=== PATIENT | male | born 1955 | race Caucasian/White ===

== ENCOUNTER 2017-11-06 21:59 | Inpatient (IN) | payer OTHER ==
[~2017-11-06] VITALS: Ht 170.2 cm; Wt 117.5 kg
[~2017-11-06 21:59] MED LIST: ASPI325T PO; ATEN-104 PO; DILT120C9 PO; OMEP20CA5 PO; PARO40TA PO; ZOCO10TA PO
[2017-11-06 22:01] VITALS: BP 130/100; PULSE 180; RESP 30; O2SAT 90
[2017-11-06] MEDS ORDERED: DILTIAZEM HCL 25 MG/5 ML VIAL IV PUSH PRN (22:30)
[2017-11-06] MEDS: DILTIAZEM INJ 125 MG in SODIUM CHLORIDE 0.9% INJ 100 ML IV PRN (22:30)
[2017-11-06] MEDS ORDERED: ASPIRIN 81 MG CHEW TAB PO ONE (22:30)
[2017-11-06] MEDS ORDERED: SODIUM CHLORIDE 0.9% FLUSH 10 ML FLUSH IVF PRN (22:30)
--- NOTE | 2017-11-06 22:41 | PD ---
HPI Chief Complaint: Respiratory Symptoms Time Seen by Provider: 22:08 Travel History International Travel<30 days: No Contact w/Intl Traveler<30days: No Traveled to known affect area: No History of Present Illness HPI The patient is a 62-year-old male that at approximately 9 PM tonight felt irregular heartbeat consistent with his previous history of paroxysmal atrial fibrillation. He felt chest tightness, was diaphoretic and short of breath. He denies any syncopal or near syncopal spells. He states he is on atenolol and Cartia. He is a [facility] patient of Dr. Joe Berger. 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 He denies any history of congestive heart failure. [facility] Past Medical History Arthritis: Yes (hands, low back) Asthma: No Atrial Fibrillation: Yes Anxiety: Yes Depression: Yes Heart Rhythm Problems: Yes (afib 14 years ago (1998)) Cancer: No Cardiovascular Problems: Yes High Cholesterol: Yes Chest Pain: No Congestive Heart Failure: No COPD: No Diminished Hearing: No Endocrine: No GERD: Yes Genitourinary: No Hiatal Hernia: No Hypertension: Yes Immune Disorder: No Musculoskeletal: Yes Neurologic: No Psychiatric: Yes Reproductive: No Respiratory: Yes Sleep Apnea: Yes (uses a cpap machine) Ulcer: No Social History Alcohol Use: Yes (2 DRINKS PER DAY) Tobacco Use: Yes (1 PPD) Substance Use: No Allergies-Medications (Allergen,Severity, Reaction): Coded Allergies: No Known Allergies (Verified , 10/15/13) Reported Meds & Prescriptions Reported Meds & Active Scripts Active Reported Coq10 (Coenzyme Q10 (Ubidecarenone)) 30 Mg Cap 30 Mg PO DAILY Metformin (Metformin HCl) 500 Mg Tab 500 Mg PO DAILY With a meal Lisinopril 10 Mg Tab 10 Mg PO DAILY Simvastatin 10 Mg Tab 10 Mg PO HS Paroxetine (Paroxetine HCl) 40 Mg Tab 40 Mg PO DAILY Omeprazole 20 Mg Tab 20 Mg PO DAILY Diltiazem (Diltiazem HCl) 120 Mg Tab 120 Mg PO QID Atenolol 100 Mg Tab 100 Mg PO DAILY Aspirin 325 Mg Tab 325 Mg PO DAILY Review of Systems Except as stated in HPI: all other systems reviewed are Neg Physical Exam Narrative GENERAL: The patient is obese, alert, oriented 3 in moderate to severe respiratory distress. His vital signs show pulse rate of 180, respirations of 30, blood pressure 130/100 with oximetry 90% when he came in. SKIN: Focused skin assessment warm/dry. HEAD: Atraumatic. Normocephalic. EYES: Pupils equal and round. No scleral icterus. No injection or drainage. ENT: No nasal bleeding or discharge. Mucous membranes pink and moist. NECK: Trachea midline. There is slight JVD. CARDIOVASCULAR: Atrial fibrillation with rapid ventricular response of 80. No murmur appreciated. RESPIRATORY: There is accessory muscle use. Bilateral wheezes and Rales are heard in all lung pang. Breath sounds equal bilaterally. GASTROINTESTINAL: Abdomen soft, non-tender, nondistended. Hepatic and splenic margins not palpable. MUSCULOSKELETAL: No obvious deformities. No clubbing. No cyanosis. No edema. NEUROLOGICAL: Awake and alert. No obvious cranial nerve deficits. Motor grossly within normal limits. Normal speech. PSYCHIATRIC: The patient is extremely anxious; insight and judgment normal. 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 JENNA.Q8H (11/06/17 22:08) Cardiac Rhythm JENNA.Q8H (11/06/17 22:08) Notify Dr: Other (11/06/17 22:08) Diltiazem Inj (Cardizem Inj) (11/06/17 22:15) Diltiazem Inj (Cardizem Inj) (11/06/17 22:30) Electrocardiogram (11/06/17 22:29) B-Type Natriuretic Peptide (11/06/17 22:29) Complete Blood Count With Diff (11/06/17 22:29) Comprehensive Metabolic Panel (11/06/17 22:29) Magnesium (Mg) (11/06/17 22:29) Prothrombin Time / Inr (Pt) (11/06/17 22:29) Act Partial Throm Time (Ptt) (11/06/17 22:29) Troponin I (11/06/17 22:29) Chest, Single Ap (11/06/17 22:29) Ecg Monitoring (11/06/17 22:29) Bilateral Bp Monitoring (11/06/17 22:29) Iv Access Insert/Monitor (11/06/17 22:29) Oximetry (11/06/17 22:29) Oxygen Administration (11/06/17 22:29) Aspirin Chew (Aspirin Chew) (11/06/17 22:30) Sodium Chloride 0.9% Flush (Ns Flush) (11/06/17 22:30) Diltiazem Inj (Cardizem Inj) (11/06/17 22:45) Furosemide Inj (Lasix Inj) (11/06/17 23:15) Admit Order (Ed Use Only) (11/07/17 00:52) Labs Laboratory Tests Test 11/06/17 00:01 11/06/17 22:49 Blood Urea Nitrogen 20 MG/DL Creatinine 0.79 MG/DL Random Glucose 187 MG/DL Total Protein 7.0 GM/DL Albumin 3.1 GM/DL Calcium Level 8.4 MG/DL Magnesium Level 1.8 MG/DL Alkaline Phosphatase 52 U/L Aspartate Amino Transf (AST/SGOT) 49 U/L Alanine Aminotransferase (ALT/SGPT) 53 U/L Total Bilirubin 0.5 MG/DL Sodium Level 142 MEQ/L Potassium Level 3.7 MEQ/L Chloride Level 110 MEQ/L Carbon Dioxide Level 23.5 MEQ/L Anion Gap 9 MEQ/L Estimat Glomerular Filtration Rate 99 ML/MIN Troponin I 0.07 NG/ML White Blood Count 13.6 TH/MM3 Red Blood Count 5.22 MIL/MM3 Hemoglobin 15.4 GM/DL Hematocrit 47.3 % Mean Corpuscular Volume 90.7 FL Mean Corpuscular Hemoglobin 29.5 PG Mean Corpuscular Hemoglobin Concent 32.5 % Red Cell Distribution Width 12.8 % Platelet Count 213 TH/MM3 Mean Platelet Volume 10.0 FL Neutrophils (%) (Auto) 48.2 % Lymphocytes (%) (Auto) 41.2 % Monocytes (%) (Auto) 7.4 % Eosinophils (%) (Auto) 1.1 % Basophils (%) (Auto) 2.1 % Neutrophils # (Auto) 6.6 TH/MM3 Lymphocytes # (Auto) 5.6 TH/MM3 Monocytes # (Auto) 1.0 TH/MM3 Eosinophils # (Auto) 0.1 TH/MM3 Basophils # (Auto) 0.3 TH/MM3 CBC Comment AUTO DIFF Differential Comment AUTO DIFF CONFIRMED Prothrombin Time 10.6 SEC Prothromb Time International Ratio 1.0 RATIO Activated Partial Thromboplast Time 21.2 SEC MDM Medical Decision Making Medical Screen Exam Complete: Yes Emergency Medical Condition: Yes Medical Record Reviewed: Yes Interpretation(s) EKG initially shows atrial fibrillation with RVR with a rate of about 170. Later EKG after 50 of Cardizem and on a Cardizem drip showed a rate of 88 with still in atrial fibrillation. The troponin I is 0.07. The CBC shows a white count of 13,600. The complete metabolic profile shows a BUN of 20, glucose 187 , calcium 8.4, AST of 49 with albumin 3.1. The coagulation profile shows a PTT of 21.2. Differential Diagnosis Paroxysmal atrial fibrillation, myocardial infarction, electrolyte disorder, congestive heart failure, hypo-/hyperglycemia, renal insufficiency Narrative Course The patient has a minimal elevation of the troponin I which may be simply congestive heart failure. The x-ray did show congestive heart failure. The patient will be put on Lovenox and a Cardizem drip and admitted to [facility] I discussed the patient with Dr. Le and Dr. taylor. It is now 013 6 in the morning and the patient feels much better and his shortness of breath has resolved. He was also given Lasix here IV. The nurses could not get a peripheral IV in this patient and I had to put an external jugular line in. Critical Care Narrative The patient was in severe distress when he came in, diaphoretic. He required constant monitoring as we gave him boluses of Cardizem. The total Cardizem bolus was 50 mg. Critical care time was 45 minutes.Aggregate critical care time was [-] minutes. Time to perform other separately billable procedures was not included in the critical care time. My time did not include minutes spent treating any other patients simultaneously or on activities that did not directly contribute to the patient's treatment. The services I provided to this patient were to treat and/or prevent clinically significant deterioration that could result in: Pulmonary edema/ I provided critical care services requiring my management, as noted below: Chart data review, documentation time, medication orders and management, vital sign assessments/reviewing monitor data, ordering and reviewing lab tests, ordering and interpreting/reviewing x-rays and diagnostic studies, care of the patient and discussion of the patient with the admitting physicians. Physician Communication Physician Communication I discussed the patient twice with Dr. Cruz and once with Dr. taylor. Diagnosis Primary Impression: Atrial fibrillation with RVR Additional Impressions: Congestive heart failure Elevated troponin I level Helio Moe MD Nov 06, 2017 22:41
[2017-11-06] MEDS ORDERED: DILTIAZEM HCL 25 MG/5 ML VIAL IV ONE (22:45)
[2017-11-06 22:52] VITALS: BP 142/84; PULSE 95; RESP 18; O2SAT 94; O2SAT 95
[2017-11-06 22:58] LABS: AUTOMATED NEUTROPHIL # 6.6 TH/MM3 (1.8-7.7); BASOPHIL # 0.3 TH/MM3 (0-0.2); BASOPHIL % 2.1 % (0.0-2.0); EOSINOPHIL # 0.1 TH/MM3 (0-0.4); EOSINOPHIL % 1.1 % (0.0-4.0); HEMATOCRIT 47.3 % (39.0-51.0); HEMOGLOBIN 15.4 GM/DL (13.0-17.0); LYMPH % 41.2 % (9.0-44.0); LYMPHOCYTE # 5.6 TH/MM3 (1.0-4.8); MEAN CELL VOLUME 90.7 FL (80.0-100.0); MEAN CORPUSCULAR HEMOGLOBIN 29.5 PG (27.0-34.0); MEAN CORPUSCULAR HGB CONC 32.5 % (32.0-36.0); MONO % 7.4 % (0.0-8.0); NEUT % 48.2 % (16.0-70.0); PLATELET COUNT 213 TH/MM3 (150-450); RED BLOOD COUNT 5.22 MIL/MM3 (4.50-5.90); RED CELL DISTRIBUTION WIDTH 12.8 % (11.6-17.2); WHITE BLOOD COUNT 13.6 TH/MM3 (4.0-11.0)
--- NOTE | 2017-11-06 22:59 | RADRPT ---
EXAM DATE/TIME: 11/06/2017 22:44 [place] COMPARISON: No previous studies available for comparison. INDICATIONS : Shortness of breath. MEDICAL HISTORY : Respiratory failure. SURGICAL HISTORY : None. ENCOUNTER: Initial ACUITY: 1 day PAIN SCORE: 0/10 LOCATION: Bilateral chest FINDINGS: Mild and fairly diffuse interstitial opacity seen of both lungs. No dense or confluent consolidation. No pleural effusion. No pneumothorax. Left base granuloma seen. There is mild cardiomegaly. CONCLUSION: Early/mild failure suspected. No lobar consolidation demonstrated. Russell Kaiser MD on November 06, 2017 at 22:55 Board Certified Radiologist. This report was verified electronically.
[2017-11-06] MEDS ORDERED: FUROSEMIDE 40 MG/4 ML VIAL IV PUSH ONE (23:15)
[2017-11-07] VITALS (28 sets, daily range): BP systolic 94–150; BP diastolic 52–88; PULSE 75–116; RESP 14–26; TEMP 97.9–98.8; O2SAT 93–99
[2017-11-07] MEDS ORDERED: DILT120T PO (00:21)
[2017-11-07] MEDS ORDERED: OMEP20TA93 PO (00:21)
[2017-11-07] MEDS ORDERED: LISI10TA3 PO (00:21)
[2017-11-07] MEDS ORDERED: ASPI-183 PO (00:21)
[2017-11-07] MEDS ORDERED: SIMV10TA PO (00:21)
[2017-11-07] MEDS ORDERED: PARO40TA2 PO (00:21)
[2017-11-07] MEDS ORDERED: ATEN100T PO (00:21)
[2017-11-07] MEDS ORDERED: COQ130CA PO (00:21)
[2017-11-07] MEDS ORDERED: METF500T PO (00:21)
[2017-11-07 00:30] LABS: CHLORIDE 110 MEQ/L (98-107); SODIUM (NA) 142 MEQ/L (136-145)
[2017-11-07 00:34] LABS: PROTHROMBIN TIME - PATIENT 10.6 SEC (9.8-11.6)
[2017-11-07 00:34] LABS: ALBUMIN 3.1 GM/DL (3.4-5.0); BICARBONATE 23.5 MEQ/L (21.0-32.0); CALCIUM 8.4 MG/DL (8.5-10.1)
[2017-11-07 00:35] LABS: BLOOD UREA NITROGEN 20 MG/DL (7-18); GLUCOSE,RANDOM 187 MG/DL (74-106); MAGNESIUM 1.8 MG/DL (1.5-2.5)
[2017-11-07 00:37] LABS: ALT (GPT) 53 U/L (12-78)
[2017-11-07 00:38] LABS: AST (GOT) 49 U/L (15-37)
[2017-11-07 00:39] LABS: CREATININE 0.79 MG/DL (0.60-1.30); GLOMERULAR FILTRATION RATE 99 ML/MIN (>89); TOTAL BILIRUBIN ADULT 0.5 MG/DL (0.2-1.0)
[2017-11-07 00:40] LABS: ALKALINE PHOSPHATASE 52 U/L (45-117)
[2017-11-07 00:43] LABS: TROPONIN I 0.07 NG/ML (0.02-0.05)
[2017-11-07] MEDS ORDERED: HEPARIN-D5W 25,000 U/250 ML 250 ML IV PRN (01:15)
[2017-11-07] MEDS ORDERED: DILTIAZEM HCL 60 MG TAB PO ONE (01:15)
[2017-11-07] MEDS ORDERED: DEXTROSE 50% IN WATER 50 ML VIAL(D50) IV PUSH PRN (01:45)
[2017-11-07] MEDS ORDERED: ENOXAPARIN SODIUM 80 MG/0.8 ML SYRINGE SQ ONE (01:45)
[2017-11-07] MEDS ORDERED: ENOXAPARIN SODIUM 120 MG/0.8 ML SYRINGE SQ ONE (01:45)
[2017-11-07] MEDS ORDERED: GLUCAGON 1 MG/ML VIAL OTHER PRN (01:45)
[2017-11-07] MEDS ORDERED: ONDANSETRON HCL 4 MG/2 ML VIAL IVP PRN (02:00)
[2017-11-07] MEDS ORDERED: BISACODYL 10 MG SUPP RECTAL PRN (02:00)
[2017-11-07] MEDS ORDERED: SODIUM CHLORIDE 0.9% FLUSH 10 ML FLUSH IV FLUSH PRN (02:00)
[2017-11-07] MEDS ORDERED: LACTULOSE SYRUP 20 GM/30 ML CUP PO PRN (02:00)
[2017-11-07] MEDS ORDERED: MAGNESIUM HYDROXIDE SUSP 30 ML CUP PO PRN (02:00)
[2017-11-07] MEDS ORDERED: NALOXONE HCL 0.4 MG/ML AMP IV PUSH PRN (02:00)
[2017-11-07] MEDS ORDERED: ACETAMINOPHEN 325 MG TAB PO PRN (02:00)
[2017-11-07] MEDS ORDERED: SENNOSIDES 8.6 MG TAB PO PRN (02:00)
[2017-11-07] MEDS ORDERED: CHLORHEXIDINE GLUCONATE 2 % 1 PACK (2 CLOTHS)(extra cloths) TOPICAL PRN (03:45)
[2017-11-07] MEDS: CHLORHEXIDINE GLUCONATE 2 % 1 PACK (2 CLOTHS)(taper/protocol) TOPICAL SCH (04:00)
[2017-11-07] MEDS: DILTIAZEM INJ 125 MG in SODIUM CHLORIDE 0.9% INJ 100 ML IV PRN (06:02)
[2017-11-07] MEDS: INSULIN ASPART SUPPLEMENTAL SCALE SQ SCH ×4 (08:00→20:40)
[2017-11-07] MEDS ORDERED: ATENOLOL 100 MG TAB PO SCH (09:00)
[2017-11-07] MEDS ORDERED: ASPIRIN 325 MG TAB PO SCH (09:00)
[2017-11-07] MEDS: DOCUSATE SODIUM 50 MG/SENNA 8.6 MG TAB PO SCH ×2 (09:00→20:40)
[2017-11-07] MEDS ORDERED: LISINOPRIL 10 MG TAB PO SCH (09:00)
[2017-11-07] MEDS ORDERED: COENZYME Q10 30 MG PO SCH (09:00)
[2017-11-07] MEDS: PANTOPRAZOLE SOD 20 MG DELAYED RELEASE TAB PO SCH (09:17)
[2017-11-07] MEDS: PARoxetine HCL 20 MG TAB PO SCH (09:17)
[2017-11-07] MEDS: metFORMIN HCL 500 MG TAB PO SCH (09:17)
[2017-11-07] MEDS: SODIUM CHLORIDE 0.9% FLUSH 10 ML FLUSH IV FLUSH SCH ×2 (09:18→20:39)
--- NOTE | 2017-11-07 10:15 | PD.CONS ---
HPI Consult Requested By Primary Care Physician No Primary Care Physician History of Present Illness 62-year-old male with past medical history of A. fib, HLD, HTN, DM, depression, GERD who presented for shortness of breath. The patient states that for the past week he felt like he was getting a cold. He states that yesterday he felt very fatigued and shortness of breath and presented to the ED. He was found to be in A. fib RVR rate 180s in the ED and received IV Cardizem. Heart rate currently 90s on Cardizem gtt at rest and patient feeling better. He denies any chest pain. His chest x-ray did show mild congestive failure upon admission and received IV Lasix. (Yves Perez) Review of Systems Negative except as stated in history of present illness (Yves Perez) Past Family Social History Allergies: Coded Allergies: No Known Allergies (Verified , 10/15/13) Past Medical History Atrial fibrillation Hypertension Hyperlipidemia A reason why this GERD Depression Reported Medications Reported Meds & Active Scripts Active Reported Coq10 (Coenzyme Q10 (Ubidecarenone)) 30 Mg Cap 30 Mg PO DAILY Metformin (Metformin HCl) 500 Mg Tab 500 Mg PO DAILY With a meal Lisinopril 10 Mg Tab 10 Mg PO DAILY Simvastatin 10 Mg Tab 10 Mg PO HS Paroxetine (Paroxetine HCl) 40 Mg Tab 40 Mg PO DAILY Omeprazole 20 Mg Tab 20 Mg PO DAILY Diltiazem (Diltiazem HCl) 120 Mg Tab 120 Mg PO QID Atenolol 100 Mg Tab 100 Mg PO DAILY Aspirin 325 Mg Tab 325 Mg PO DAILY Active Ordered Medications Current Medications Medications (Trade) Dose Ordered Sig/Isabel Route Start Time Stop Time Status Last Admin Diltiazem HCl 125 mg/Sodium Chloride 125 ml @ 5 mls/hr TITRATE PRN IV 11/06/17 22:15 11/07/17 06:02 (Cardizem Inj) 25 mg UNSCH X1 PRN IV PUSH 11/06/17 22:30 11/06/17 22:20 (Aspirin) 325 mg DAILY PO 11/07/17 09:00 11/07/17 09:16 (Tenormin) 100 mg DAILY PO 11/07/17 09:00 11/07/17 09:16 (Prinivil) 10 mg DAILY PO 11/07/17 09:00 11/07/17 09:17 (Glucophage) 500 mg DAILY PO 11/07/17 09:00 11/07/17 09:17 (Paxil) 40 mg DAILY PO 11/07/17 09:00 11/07/17 09:17 (Protonix) 20 mg DAILY PO 11/07/17 09:00 11/07/17 09:17 (Pravachol) 10 mg HS PO 11/07/17 21:00 (D50w (Vial) Inj) 50 ml UNSCH PRN IV PUSH 11/07/17 01:45 (Glucagon Inj) 1 mg UNSCH PRN OTHER 11/07/17 01:45 (NovoLOG SUPPLEMENTAL SCALE) 1 ACHS SLIDING SCALE SQ 11/07/17 08:00 (NS Flush) 2 ml UNSCH PRN IV FLUSH 11/07/17 02:00 (NS Flush) 2 ml BID IV FLUSH 11/07/17 09:00 11/07/17 09:18 (Tylenol) 650 mg Q4H PRN PO 11/07/17 02:00 (Zofran Inj) 4 mg Q6H PRN IVP 11/07/17 02:00 (Narcan Inj) 0.4 mg UNSCH PRN IV PUSH 11/07/17 02:00 (Rosalie-Colace) 1 tab BID PO 11/07/17 09:00 (Milk Of Magnesia Liq) 30 ml Q12H PRN PO 11/07/17 02:00 (Senokot) 17.2 mg Q12H PRN PO 11/07/17 02:00 (Dulcolax Supp) 10 mg DAILY PRN RECTAL 11/07/17 02:00 (Lactulose Liq) 30 ml DAILY PRN PO 11/07/17 02:00 Miscellaneous Information Patient in critical care unit? Ass... Q361D .XX 11/07/17 03:45 11/07/17 03:45 (Chlorhexidine 2% Cloth) 3 pack DAILY@04 TOPICAL 11/07/17 04:00 11/11/17 04:01 11/07/17 04:00 (Chlorhexidine 2% Cloth) 3 pack UNSCH PRN TOPICAL 11/07/17 03:45 11/12/17 03:40 Family History Mother at 66 of pancreatic cancer Father at 74 for heart attack Social History Daily EtOH Tobacco use (Long,Yves D. PA) Physical Exam Vital Signs Vital Signs Date Time Temp Pulse Resp B/P (MAP) Pulse Ox O2 Delivery O2 Flow Rate FiO2 11/07/17 09:00 107 119/59 11/07/17 07:43 99 Nasal Cannula 2.00 11/07/17 06:02 95 109/54 11/07/17 06:00 83 11/07/17 05:21 80 105/55 11/07/17 04:00 78 11/07/17 04:00 98.2 78 20 112/65 (81) 95 11/07/17 03:44 88 129/79 11/07/17 03:00 11/07/17 02:58 75 18 150/84 (106) 97 Nasal Cannula 4.00 11/07/17 01:34 97 18 138/74 (95) 95 Nasal Cannula 4.00 11/07/17 00:13 92 18 135/87 (103) 93 Nasal Cannula 4.00 11/07/17 00:13 135/88 (104) 140/83 (102) 11/06/17 22:52 95 18 142/84 (103) 94 Non-Rebreather 11/06/17 22:52 95 Non-Rebreather 11/06/17 22:52 95 Non-Rebreather 11/06/17 22:30 150 130/100 11/06/17 22:20 94 Non-Rebreather 11/06/17 22:01 180 30 130/100 (110) 90 Physical Exam GENERAL: Well-developed well-nourished. Morbidly obese. In no acute distress. NECK: No carotid bruits. No JVD. CARDIOVASCULAR: Irregular controlled rate and irregular rhythm. No murmur appreciated. RESPIRATORY: No accessory muscle use. Clear to auscultation. Breath sounds equal bilaterally. MUSCULOSKELETAL: No clubbing or cyanosis. No edema. NEUROLOGICAL: Awake and alert. Normal speech. Laboratory Laboratory Tests Test 11/06/17 22:49 11/07/17 03:30 White Blood Count 13.6 Red Blood Count 5.22 Hemoglobin 15.4 Hematocrit 47.3 Mean Corpuscular Volume 90.7 Mean Corpuscular Hemoglobin 29.5 Mean Corpuscular Hemoglobin Concent 32.5 Red Cell Distribution Width 12.8 Platelet Count 213 Mean Platelet Volume 10.0 Neutrophils (%) (Auto) 48.2 Lymphocytes (%) (Auto) 41.2 Monocytes (%) (Auto) 7.4 Eosinophils (%) (Auto) 1.1 Basophils (%) (Auto) 2.1 Neutrophils # (Auto) 6.6 Lymphocytes # (Auto) 5.6 Monocytes # (Auto) 1.0 Eosinophils # (Auto) 0.1 Basophils # (Auto) 0.3 CBC Comment AUTO DIFF Differential Comment AUTO DIFF CONFIRMED Prothrombin Time 10.6 Prothromb Time International Ratio 1.0 Activated Partial Thromboplast Time 21.2 B-Type Natriuretic Peptide 407 Nasal Screen MRSA (PCR) MRSA NOT DETECTED (Yves Perez) Result Diagram: 11/06/17224811/06/17 0001 Imaging Last Impressions Chest X-Ray 11/06/172228 Signed Impressions: Service Date/Time: Monday, November 06, 2017 22:44 - CONCLUSION: Early/mild failure suspected. No lobar consolidation demonstrated. Russell Kaiser MD (Yves Perez) Assessment and Plan Assessment and Plan 62-year-old male with past medical history of A. fib, HLD, HTN, DM, depression, GERD who presented for shortness of breath. The patient states that for the past week he felt like he was getting a cold. He states that yesterday he felt very fatigued and shortness of breath and presented to the ED. He was found to be in A. fib RVR rate 180s in the ED and received IV Cardizem. Heart rate currently 90s on Cardizem gtt at rest and patient feeling better. He denies any chest pain. His chest x-ray did show mild congestive failure upon admission and received IV Lasix. Atrial fibrillation with rapid ventricular response: Heart rate currently controlled. On Cardizem gtt. Home atenolol restarted. Chadsvasc 1, on aspirin 325. (Yves Perez) Assessment and Plan no obvious trigger mild CHF await 2d echo diuresis hold MUSA to allow more BP for HR control cont BB. change atenolol to metoprolol. easier for titration and better for rate control add cardizem PO q6. wean gtt. convert to extended release formulation when dosing stable may decide on ischemic eval pending echo given risk factors given age, CHADSVASc = 3 HTN DM CHF, start oral anticoagulant (Daren Nguyễn MD) Yves Perez Nov 07, 2017 10:15 Daren Nguyễn MD Nov 07, 2017 14:11
--- NOTE | 2017-11-07 12:34 | EKG ---
Date Performed: 11/06/2017 Time Performed: 22:04:45 PTAGE: 62 years EKG: ATRIAL FIBRILLATION WITH RAPID VENTRICULAR RESPONSE MARKED LEFT AXIS DEVIATION Left bundle branch block POSSIBLE ANTEROSEPTAL MYOCARDIAL INFARCTION Compared to previous tracing, rate has incre ased significantly ABNORMAL ECG NO PREVIOUS TRACING DOCTOR: Rober Barros Interpretating Date/Time 11/07/2017 12:32:09
[2017-11-07 12:40] LABS: AUTOMATED NEUTROPHIL # 5.2 TH/MM3 (1.8-7.7); BASOPHIL # 0.1 TH/MM3 (0-0.2); BASOPHIL % 0.7 % (0.0-2.0); EOSINOPHIL # 0.1 TH/MM3 (0-0.4); EOSINOPHIL % 0.8 % (0.0-4.0); HEMATOCRIT 38.6 % (39.0-51.0); HEMOGLOBIN 12.9 GM/DL (13.0-17.0); LYMPH % 26.5 % (9.0-44.0); LYMPHOCYTE # 2.1 TH/MM3 (1.0-4.8); MEAN CELL VOLUME 90.2 FL (80.0-100.0); MEAN CORPUSCULAR HEMOGLOBIN 30.2 PG (27.0-34.0); MEAN CORPUSCULAR HGB CONC 33.5 % (32.0-36.0); MEAN PLATELET VOLUME 9.1 FL (7.0-11.0); MONO % 7.9 % (0.0-8.0); MONOCYTE # 0.6 TH/MM3 (0-0.9); NEUT % 64.1 % (16.0-70.0); PLATELET COUNT 199 TH/MM3 (150-450); RED BLOOD COUNT 4.28 MIL/MM3 (4.50-5.90); RED CELL DISTRIBUTION WIDTH 13.4 % (11.6-17.2); WHITE BLOOD COUNT 8.1 TH/MM3 (4.0-11.0)
[2017-11-07 12:55] LABS: BICARBONATE 24.2 MEQ/L (21.0-32.0); CALCIUM 8.3 MG/DL (8.5-10.1); CREATININE 0.62 MG/DL (0.60-1.30)
[2017-11-07 12:59] LABS: TROPONIN I 0.03 NG/ML (0.02-0.05)
[2017-11-07] MEDS: APIXABAN 5 MG TABLET PO SCH (15:06)
[2017-11-07] MEDS: DILTIAZEM HCL 30 MG TAB PO SCH ×3 (15:06→23:21)
--- NOTE | 2017-11-07 15:17 | HHI.HP ---
HPI Service CP Hospitalists Primary Care Physician No Primary Care Physician Admission Diagnosis atrial fibrillation with rapid ventricular response, congestive hear Chief Complaint: rapid heart rate with shortness of breath Travel History International Travel<30 Days: No Contact w/Intl Traveler <30 Da: No Traveled to Known Affected Are: No History of Present Illness The patient is a 62-year-old male that at approximately 9 PM tonight felt irregular heartbeat consistent with his previous history of paroxysmal atrial fibrillation. He felt chest tightness, was diaphoretic and short of breath. He denies any syncopal or near syncopal spells. He states he is on atenolol and Cartia. Patient with long hx atrial fib ,he did feel like a cold was coming on otherwise no chest pain did have some SOB in er was in rapid atrial fib and given several iv dose cardiazem and drip also had mild CHF on xray which responded to Lasix which improved breathing. Will be admitted to [facility] with cardiac consult. Review of Systems Constitutional: COMPLAINS OF: Diaphoretic episodes Cardiovascular: COMPLAINS OF: Palpitations, Dyspnea on Exertion Past Family Social History Past Medical History djd a fib,increase lipids htn GERD sleep apnea with c pap machine Reported Medications Coq10 (Coenzyme Q10 (Ubidecarenone)) 30 Mg Cap 30 Mg PO DAILY Metformin (Metformin HCl) 500 Mg Tab 500 Mg PO DAILY With a meal Lisinopril 10 Mg Tab 10 Mg PO DAILY Simvastatin 10 Mg Tab 10 Mg PO HS Paroxetine (Paroxetine HCl) 40 Mg Tab 40 Mg PO DAILY Omeprazole 20 Mg Tab 20 Mg PO DAILY Diltiazem (Diltiazem HCl) 120 Mg Tab 120 Mg PO QID Atenolol 100 Mg Tab 100 Mg PO DAILY Aspirin 325 Mg Tab 325 Mg PO DAILY Allergies: Coded Allergies: No Known Allergies (Verified , 10/15/13) Social History smokes less then 1 ppd ,2 drinks a day Physical Exam Vital Signs Vital Signs Date Time Temp Pulse Resp B/P (MAP) Pulse Ox O2 Delivery O2 Flow Rate FiO2 11/07/17 12:30 82 22 107/60 (76) 95 11/07/17 12:00 98.4 86 25 115/80 (92) 95 11/07/17 11:30 76 20 125/69 (87) 96 11/07/17 11:00 81 19 95/60 (72) 96 11/07/17 10:54 82 94/52 11/07/17 10:30 86 19 94/52 (66) 98 11/07/17 10:28 86 94/52 11/07/17 10:00 98 19 119/57 (77) 97 11/07/17 09:30 116 19 114/61 (78) 99 11/07/17 09:30 114 114/61 11/07/17 09:00 107 20 119/59 (79) 99 11/07/17 09:00 107 119/59 11/07/17 08:30 99 20 102/67 (79) 96 11/07/17 08:00 98.8 98 21 101/69 (80) 98 11/07/17 07:43 99 Nasal Cannula 2.00 11/07/17 06:02 95 109/54 11/07/17 06:00 83 11/07/17 05:21 80 105/55 11/07/17 04:00 78 11/07/17 04:00 98.2 78 20 112/65 (81) 95 11/07/17 03:44 88 129/79 11/07/17 03:00 11/07/17 02:58 75 18 150/84 (106) 97 Nasal Cannula 4.00 11/07/17 01:34 97 18 138/74 (95) 95 Nasal Cannula 4.00 11/07/17 00:13 92 18 135/87 (103) 93 Nasal Cannula 4.00 11/07/17 00:13 135/88 (104) 140/83 (102) 11/06/17 22:52 95 18 142/84 (103) 94 Non-Rebreather 11/06/17 22:52 95 Non-Rebreather 11/06/17 22:52 95 Non-Rebreather 11/06/17 22:30 150 130/100 11/06/17 22:20 94 Non-Rebreather 11/06/17 22:01 180 30 130/100 (110) 90 Physical Exam GENERAL: This is a well-nourished, well-developed patient, in no apparent distress. SKIN: No rashes, ecchymoses or lesions. Cool and dry. HEAD: Atraumatic. Normocephalic. No temporal or scalp tenderness. EYES: Pupils equal round and reactive. Extraocular motions intact. No scleral icterus. No injection or drainage. ENT: Nose without bleeding, purulent drainage or septal hematoma. Throat without erythema, tonsillar hypertrophy or exudate. Uvula midline. Airway patent. NECK: Trachea midline. No JVD or lymphadenopathy. Supple, nontender, no meningeal signs. CARDIOVASCULAR: Irreg rate and rhythm without murmurs, gallops, or rubs. RESPIRATORY: Clear to auscultation. Breath sounds equal bilaterally. No wheezes , rales, or rhonchi. GASTROINTESTINAL: Abdomen soft, non-tender, nondistended. No hepato-splenomegaly , or palpable masses. No guarding. MUSCULOSKELETAL: Extremities without clubbing, cyanosis, or edema. No joint tenderness, effusion, or edema noted. No calf tenderness. Negative Homans sign bilaterally. NEUROLOGICAL: Awake and alert. Cranial nerves II through XII intact. Motor and sensory grossly within normal limits. Five out of 5 muscle strength in all muscle groups. Normal speech. Laboratory Laboratory Tests Test 11/06/17 22:49 11/07/17 03:30 11/07/17 12:18 White Blood Count 13.6 8.1 Red Blood Count 5.22 4.28 Hemoglobin 15.4 12.9 Hematocrit 47.3 38.6 Mean Corpuscular Volume 90.7 90.2 Mean Corpuscular Hemoglobin 29.5 30.2 Mean Corpuscular Hemoglobin Concent 32.5 33.5 Red Cell Distribution Width 12.8 13.4 Platelet Count 213 199 Mean Platelet Volume 10.0 9.1 Neutrophils (%) (Auto) 48.2 64.1 Lymphocytes (%) (Auto) 41.2 26.5 Monocytes (%) (Auto) 7.4 7.9 Eosinophils (%) (Auto) 1.1 0.8 Basophils (%) (Auto) 2.1 0.7 Neutrophils # (Auto) 6.6 5.2 Lymphocytes # (Auto) 5.6 2.1 Monocytes # (Auto) 1.0 0.6 Eosinophils # (Auto) 0.1 0.1 Basophils # (Auto) 0.3 0.1 CBC Comment AUTO DIFF DIFF FINAL Differential Comment AUTO DIFF CONFIRMED Prothrombin Time 10.6 Prothromb Time International Ratio 1.0 Activated Partial Thromboplast Time 21.2 23.8 B-Type Natriuretic Peptide 407 191 Nasal Screen MRSA (PCR) MRSA NOT DETECTED Blood Urea Nitrogen 17 Creatinine 0.62 Random Glucose 145 Calcium Level 8.3 Sodium Level 141 Potassium Level 4.1 Chloride Level 109 Carbon Dioxide Level 24.2 Anion Gap 8 Estimat Glomerular Filtration Rate 131 Troponin I 0.03 Result Diagram: 11/07/17 1218 11/07/17 1218 Imaging Last 24 hours Impressions Chest X-Ray 11/06/179 Signed Impressions: Service Date/Time: Monday, November 06, 2017 22:44 - CONCLUSION: Early/mild failure suspected. No lobar consolidation demonstrated. Russell Kaiser MD Course in er started on cardiazem drip and lasix IV Caprini VTE Risk Assessment Caprini VTE Risk Assessment: Mod/High Risk (score >= 2) Caprini Risk Assessment Model Point Value = 1 Point Value = 2 Point Value = 3 Point Value = 5 Age 41-60 Minor surgery BMI > 25 kg/m2 Swollen legs Varicose veins or History of unexplained or recurrent spontaneous Oral contraceptives or hormone replacement Sepsis (< 1 month) Serious lung disease, including pneumonia (< 1 month) Abnormal pulmonary function Acute myocardial infarction Congestive heart failure (< 1 month) History of inflammatory bowel disease Medical patient at bed rest Age 61-74 Arthroscopic surgery Major open surgery (> 45 min) Laparoscopic surgery (> 45 min) Malignancy Confined to bed (> 72 hours) Immobilizing plaster cast Central venous access Age >= 75 History of VTE Family history of VTE Factor V Leiden Prothrombin [id number] Lupus anticoagulant Anticardiolipin antibodies Elevated serum homocysteine Heparin-induced thrombocytopenia Other congenital or acquired thrombophilia Stroke (< 1 month) Elective arthroplasty Hip, pelvis, or leg fracture Acute spinal cord injury (< 1 month) Prophylaxis Regimen Total Risk Factor Score Risk Level Prophylaxis Regimen 0-1 Low Early ambulation 2 Moderate Order ONE of the following: *Sequential Compression Device (SCD) *Heparin 5000 units SQ BID 3-4 Higher Order ONE of the following medications: *Heparin 5000 units SQ TID *Enoxaparin/Lovenox 40 mg SQ daily (WT < 150 kg, CrCl > 30 mL/min) *Enoxaparin/Lovenox 30 mg SQ daily (WT < 150 kg, CrCl > 10-29 mL/min) *Enoxaparin/Lovenox 30 mg SQ BID (WT < 150 kg, CrCl > 30 mL/min) AND/OR *Sequential Compression Device (SCD) 5 or more Highest Order ONE of the following medications: *Heparin 5000 units SQ TID (Preferred with Epidurals) *Enoxaparin/Lovenox 40 mg SQ daily (WT < 150 kg, CrCl > 30 mL/min) *Enoxaparin/Lovenox 30 mg SQ daily (WT < 150 kg, CrCl > 10-29 mL/min) *Enoxaparin/Lovenox 30 mg SQ BID (WT < 150 kg, CrCl > 30 mL/min) AND *Sequential Compression Device (SCD) Assessment and Plan Problem List: (1) Atrial fibrillation with RVR ICD Codes: I48.91 - Unspecified atrial fibrillation Status: Acute Plan: on cardiazem drip and cardiology following will be started on blood thinner (2) Congestive heart failure ICD Codes: I50.9 - Heart failure, unspecified Status: Acute Plan: responded to iv lasix 2d echo ordered may be related to the atrial fib (3) Elevated troponin I level ICD Codes: R74.8 - Abnormal levels of other serum enzymes Status: Acute Plan: recheck troponin probably related to a fib Assessment and Plan further plan as case develops patient did have elevated WBC count will recheck also add lipid check follow up BNP Code Status full Discussed Condition With patient Physician Certification 2 Midnight Certification Type: Admission for Inpatient Services Order for Inpatient Services The services are ordered in accordance with Medicare regulations or non- Medicare payer requirements, as applicable. In the case of services not specified as inpatient-only, they are appropriately provided as inpatient services in accordance with the 2-midnight benchmark. Estimated LOS (days): 3 3 days is the estimated time the patient will need to remain in the hospital, assuming treatment plan goals are met and no additional complications. Post-Hospital Plan: Home Kalia Le MD Nov 07, 2017 15:17
[2017-11-07] MEDS: PRAVASTATIN SOD 10 MG TAB PO SCH (20:39)
[2017-11-07] MEDS: METOPROLOL TARTRATE 50 MG TAB PO SCH (20:39)
[2017-11-08] VITALS (13 sets, daily range): BP systolic 92–139; BP diastolic 53–77; PULSE 80–122; RESP 14–38; TEMP 97.9–99.4; O2SAT 92–94
[2017-11-08] MEDS ORDERED: DILTIAZEM 125 MG/NS 100 ML IV PRN ×2 (01:30)
[2017-11-08] MEDS: CHLORHEXIDINE GLUCONATE 2 % 1 PACK (2 CLOTHS)(taper/protocol) TOPICAL SCH (04:00)
[2017-11-08] MEDS: DILTIAZEM HCL 30 MG TAB PO SCH (05:51)
[2017-11-08] MEDS: INSULIN ASPART SUPPLEMENTAL SCALE SQ SCH ×4 (08:00→20:48)
--- NOTE | 2017-11-08 08:29 | PD.CARD.PN ---
Subjective Subjective Remarks Heart rate currently controlled. Reports shortness of breath and fatigue have improved. He denies any chest pain or palpitations. (Yves Perez) Objective Medications Current Medications Medications (Trade) Dose Ordered Sig/Isabel Route Start Time Stop Time Status Last Admin (Cardizem Inj) 25 mg UNSCH X1 PRN IV PUSH 11/06/17 22:30 11/06/17 22:20 (Glucophage) 500 mg DAILY PO 11/07/17 09:00 11/07/17 09:17 (Paxil) 40 mg DAILY PO 11/07/17 09:00 11/07/17 09:17 (Protonix) 20 mg DAILY PO 11/07/17 09:00 11/07/17 09:17 (Pravachol) 10 mg HS PO 11/07/17 21:00 11/07/17 20:39 (D50w (Vial) Inj) 50 ml UNSCH PRN IV PUSH 11/07/17 01:45 (Glucagon Inj) 1 mg UNSCH PRN OTHER 11/07/17 01:45 (NovoLOG SUPPLEMENTAL SCALE) 1 ACHS SLIDING SCALE SQ 11/07/17 08:00 (NS Flush) 2 ml UNSCH PRN IV FLUSH 11/07/17 02:00 (NS Flush) 2 ml BID IV FLUSH 11/07/17 09:00 11/07/17 20:39 (Tylenol) 650 mg Q4H PRN PO 11/07/17 02:00 (Zofran Inj) 4 mg Q6H PRN IVP 11/07/17 02:00 (Narcan Inj) 0.4 mg UNSCH PRN IV PUSH 11/07/17 02:00 (Rosalie-Colace) 1 tab BID PO 11/07/17 09:00 (Milk Of Magnesia Liq) 30 ml Q12H PRN PO 11/07/17 02:00 (Senokot) 17.2 mg Q12H PRN PO 11/07/17 02:00 (Dulcolax Supp) 10 mg DAILY PRN RECTAL 11/07/17 02:00 (Lactulose Liq) 30 ml DAILY PRN PO 11/07/17 02:00 Miscellaneous Information Patient in critical care unit? Ass... Q361D .XX 11/07/17 03:45 11/07/17 03:45 (Chlorhexidine 2% Cloth) 3 pack DAILY@04 TOPICAL 11/07/17 04:00 11/11/17 04:01 11/08/17 04:00 (Chlorhexidine 2% Cloth) 3 pack UNSCH PRN TOPICAL 11/07/17 03:45 11/12/17 03:40 (Cardizem) 30 mg Q6HR PO 11/07/17 14:00 11/08/17 05:51 (Lopressor) 50 mg Q12HR PO 11/07/17 21:00 11/07/17 20:39 (Aspirin Chew) 81 mg DAILY PO 11/08/17 09:00 (Eliquis) 5 mg BID PO 11/07/17 15:00 11/07/17 15:06 Diltiazem HCl 125 mg/Sodium Chloride 125 ml @ 5 mls/hr TITRATE PRN IV 11/08/17 01:30 11/08/17 01:46 Vital Signs / I&O Vital Signs Date Time Temp Pulse Resp B/P (MAP) Pulse Ox O2 Delivery O2 Flow Rate FiO2 11/08/17 08:00 94 11/08/17 06:00 86 11/08/17 04:00 97.9 108 22 139/77 (97) 94 11/08/17 04:00 108 11/08/17 03:03 128 139/88 11/08/17 02:18 133 115/59 11/08/17 02:00 122 11/08/17 01:46 134 112/83 11/08/17 00:01 98.4 121 21 128/73 (91) 92 11/08/17 00:01 121 11/07/17 22:00 100 11/07/17 21:32 96 Nasal Cannula 2.00 11/07/17 20:00 97.9 101 22 118/67 (84) 94 11/07/17 20:00 101 11/07/17 17:00 103 14 114/66 (82) 95 11/07/17 16:30 90 20 113/70 (84) 95 11/07/17 16:00 98.4 96 19 114/56 (75) 94 11/07/17 15:30 94 21 109/74 (86) 97 11/07/17 15:00 91 26 109/66 (80) 95 11/07/17 14:30 80 20 103/67 (79) 94 11/07/17 14:00 81 21 109/69 (82) 94 11/07/17 13:30 78 21 113/72 (86) 95 11/07/17 13:00 86 23 110/75 (87) 95 11/07/17 12:30 82 22 107/60 (76) 95 11/07/17 12:00 98.4 86 25 115/80 (92) 95 11/07/17 11:30 76 20 125/69 (87) 96 11/07/17 11:00 81 19 95/60 (72) 96 11/07/17 10:54 82 94/52 11/07/17 10:30 86 19 94/52 (66) 98 11/07/17 10:28 86 94/52 11/07/17 10:00 98 19 119/57 (77) 97 11/07/17 09:30 116 19 114/61 (78) 99 11/07/17 09:30 114 114/61 11/07/17 09:00 107 20 119/59 (79) 99 11/07/17 09:00 107 119/59 11/07/17 08:30 99 20 102/67 (79) 96 I/O 11/07/17 11/07/17 11/07/17 11/08/17 11/08/17 11/08/17 06:59 14:59 22:59 06:59 14:59 22:59 Intake Total 125 ml 675 ml 240 ml Output Total 650 ml 350 ml Balance 125 ml 25 ml -110 ml Intake Oral 600 ml 240 ml IV Total 125 ml 75 ml Output Urine Total 650 ml 350 ml # Bowel Movements 0 Physical Exam GENERAL: Well-developed well-nourished. Morbidly obese. In no acute distress. NECK: No carotid bruits. No JVD. CARDIOVASCULAR: Irregular controlled rate and irregular rhythm. No murmur appreciated. RESPIRATORY: No accessory muscle use. Clear to auscultation. Breath sounds equal bilaterally. MUSCULOSKELETAL: No clubbing or cyanosis. No edema. NEUROLOGICAL: Awake and alert. Normal speech. Laboratory Laboratory Tests Test 11/07/17 12:18 White Blood Count 8.1 TH/MM3 Red Blood Count 4.28 MIL/MM3 Hemoglobin 12.9 GM/DL Hematocrit 38.6 % Mean Corpuscular Volume 90.2 FL Mean Corpuscular Hemoglobin 30.2 PG Mean Corpuscular Hemoglobin Concent 33.5 % Red Cell Distribution Width 13.4 % Platelet Count 199 TH/MM3 Mean Platelet Volume 9.1 FL Neutrophils (%) (Auto) 64.1 % Lymphocytes (%) (Auto) 26.5 % Monocytes (%) (Auto) 7.9 % Eosinophils (%) (Auto) 0.8 % Basophils (%) (Auto) 0.7 % Neutrophils # (Auto) 5.2 TH/MM3 Lymphocytes # (Auto) 2.1 TH/MM3 Monocytes # (Auto) 0.6 TH/MM3 Eosinophils # (Auto) 0.1 TH/MM3 Basophils # (Auto) 0.1 TH/MM3 CBC Comment DIFF FINAL Differential Comment Activated Partial Thromboplast Time 23.8 SEC Blood Urea Nitrogen 17 MG/DL Creatinine 0.62 MG/DL Random Glucose 145 MG/DL Calcium Level 8.3 MG/DL Sodium Level 141 MEQ/L Potassium Level 4.1 MEQ/L Chloride Level 109 MEQ/L Carbon Dioxide Level 24.2 MEQ/L Anion Gap 8 MEQ/L Estimat Glomerular Filtration Rate 131 ML/MIN Troponin I 0.03 NG/ML B-Type Natriuretic Peptide 191 PG/ML Imaging Last Impressions Chest X-Ray 11/06/172228 Signed Impressions: Service Date/Time: Monday, November 06, 2017 22:44 - CONCLUSION: Early/mild failure suspected. No lobar consolidation demonstrated. Russell Kaiser MD (Yves Perez) Assessment and Plan Assessment and Plan 62-year-old male with past medical history of A. fib, HLD, HTN, DM, depression, GERD who presented for shortness of breath. The patient states that for the past week he felt like he was getting a cold. He states that yesterday he felt very fatigued and shortness of breath and presented to the ED. He was found to be in A. fib RVR rate 180s in the ED and received IV Cardizem. Heart rate currently 90s on Cardizem gtt at rest and patient feeling better. He denies any chest pain. His chest x-ray did show mild congestive failure upon admission and received IV Lasix. Atrial fibrillation with rapid ventricular response: Heart rate currently controlled. On oral Cardizem, wean Cardizem gtt. Home atenolol changed to metoprolol. Chadsvasc 3, started on Eliquis. No obvious trigger. Mild CHF: Improved s/p diuresis. Await 2-D echo, may decide on ischemic eval pending echo given risk factors. (Yves Perez) Assessment and Plan increase oral CCB as BP tolerates add digoxin Cr normal no need for stress test, can do as outpatient, if needed. fu 2d echo continue anticoagulation transfer out of ICU wean cardizem gtt (Daren Nguyễn MD) Yves Perez Nov 08, 2017 08:29 Daren Nguyễn MD Nov 08, 2017 08:39
[2017-11-08] MEDS: ASPIRIN 81 MG CHEW TAB PO SCH (09:00)
[2017-11-08] MEDS: APIXABAN 5 MG TABLET PO SCH ×2 (09:00→20:47)
[2017-11-08] MEDS: METOPROLOL TARTRATE 50 MG TAB PO SCH ×2 (09:00→20:47)
[2017-11-08] MEDS: SODIUM CHLORIDE 0.9% FLUSH 10 ML FLUSH IV FLUSH SCH ×2 (09:00→20:47)
[2017-11-08] MEDS: metFORMIN HCL 500 MG TAB PO SCH (09:00)
[2017-11-08] MEDS: PANTOPRAZOLE SOD 20 MG DELAYED RELEASE TAB PO SCH (09:00)
[2017-11-08] MEDS: PARoxetine HCL 20 MG TAB PO SCH (09:00)
[2017-11-08] MEDS: DOCUSATE SODIUM 50 MG/SENNA 8.6 MG TAB PO SCH ×2 (09:00→20:48)
--- NOTE | 2017-11-08 09:50 | HHI.PR ---
Subjective Remarks Pt c/o admitted to [place] with c/o palpitations. Telemetry showed Afib with RVR. Pt currently denies palpitations. Pt is hungry and requesting a diet. Objective Vitals Vital Signs Date Time Temp Pulse Resp B/P (MAP) Pulse Ox O2 Delivery O2 Flow Rate FiO2 11/08/17 08:00 98.6 80 14 92/53 (66) 94 11/08/17 08:00 94 11/08/17 06:00 86 11/08/17 04:00 97.9 108 22 139/77 (97) 94 11/08/17 04:00 108 11/08/17 03:03 128 139/88 11/08/17 02:18 133 115/59 11/08/17 02:00 122 11/08/17 01:46 134 112/83 11/08/17 00:01 98.4 121 21 128/73 (91) 92 11/08/17 00:01 121 11/07/17 22:00 100 11/07/17 21:32 96 Nasal Cannula 2.00 11/07/17 20:00 97.9 101 22 118/67 (84) 94 11/07/17 20:00 101 11/07/17 17:00 103 14 114/66 (82) 95 11/07/17 16:30 90 20 113/70 (84) 95 11/07/17 16:00 98.4 96 19 114/56 (75) 94 11/07/17 15:30 94 21 109/74 (86) 97 11/07/17 15:00 91 26 109/66 (80) 95 11/07/17 14:30 80 20 103/67 (79) 94 11/07/17 14:00 81 21 109/69 (82) 94 11/07/17 13:30 78 21 113/72 (86) 95 11/07/17 13:00 86 23 110/75 (87) 95 11/07/17 12:30 82 22 107/60 (76) 95 11/07/17 12:00 98.4 86 25 115/80 (92) 95 11/07/17 11:30 76 20 125/69 (87) 96 11/07/17 11:00 81 19 95/60 (72) 96 11/07/17 10:54 82 94/52 11/07/17 10:30 86 19 94/52 (66) 98 11/07/17 10:28 86 94/52 11/07/17 10:00 98 19 119/57 (77) 97 Result Diagram: 11/07/17 1218 11/07/17 1218 Imaging Last 24 hours Impressions Chest X-Ray 11/06/179 Signed Impressions: Service Date/Time: Monday, November 06, 2017 22:44 - CONCLUSION: Early/mild failure suspected. No lobar consolidation demonstrated. Russell Kaiser MD Objective Remarks GENERAL: This is a well-nourished, well-developed patient, in no apparent distress. CARDIOVASCULAR: irregular RESPIRATORY: Clear to auscultation. Breath sounds equal bilaterally. No wheezes , rales, or rhonchi. GASTROINTESTINAL: Abdomen soft, non-tender, nondistended. Normal active bowel sounds MUSCULOSKELETAL: Extremities without clubbing, cyanosis, or edema. NEURO: Alert & Oriented x4 to person, place, time, situation. Moves all ext x4 A/P Problem List: (1) Atrial fibrillation with RVR ICD Codes: I48.91 - Unspecified atrial fibrillation Status: Acute Plan: - comgmt with Cardiology - Echocardiogram --> pending - wean cardizem drip - PO cardizem 60mg q6h - metoprolol 100mg daily - digoxin started per Cardiology - repeat Digoxin level - Outpt stress test per cardiology - Eliquis started - supportive care (2) Congestive heart failure ICD Codes: I50.9 - Heart failure, unspecified Status: Acute Plan: - CHF d/t acute A.Fib with RVR - Pt BNP improved with IV lasix & pt clinically improved - CXR (11/07) --> early CHF - echocardiogram --> pending - obtain repeat CXR (3) Elevated troponin I level ICD Codes: R74.8 - Abnormal levels of other serum enzymes Status: Acute Plan: - demand related d/t A.Fib Problem Qualifiers (1) Congestive heart failure: Qualified Codes: I50.9 - Heart failure, unspecified Ethan Mckeon DO Nov 08, 2017 09:50
--- NOTE | 2017-11-08 10:41 | RADRPT ---
EXAM DATE/TIME: 11/08/2017 09:56 [facility] COMPARISON: CHEST SINGLE AP, November 06, 2017, 22:44. INDICATIONS : Shortness of breath. MEDICAL HISTORY : Respiratory failure. SURGICAL HISTORY : None. ENCOUNTER: Subsequent ACUITY: 2 days PAIN SCORE: Non-responsive. LOCATION: Bilateral chest FINDINGS: A single view of the chest demonstrates linear bibasilar densities. Cardiomegaly with slight intersti tial prominence. Increase in pulmonary vascularity. The cardiomediastinal contours are unremarkable. Osseous structures are intact. CONCLUSION: Cardiomegaly with slight interstitial densities likely interstitial edema with bibasilar atelectasis. Stephen Pena MD on November 08, 2017 at 10:37 Board Certified Radiologist. This report was verified electronically.
[2017-11-08] MEDS: DILTIAZEM HCL 60 MG TAB PO SCH ×3 (12:09→23:45)
[2017-11-08 12:29] LABS: BICARBONATE 25.2 MEQ/L (21.0-32.0); CALCIUM 8.4 MG/DL (8.5-10.1); CREATININE 0.62 MG/DL (0.60-1.30)
[2017-11-08 12:30] LABS: CHOLESTEROL/ HDL RATIO 4.44 RATIO; HDL CHOLESTEROL 31.5 MG/DL (40.0-60.0)
[2017-11-08] MEDS: DIGOXIN 0.5 MG/2 ML VIAL IVS SCH ×2 (15:11→20:47)
--- NOTE | 2017-11-08 18:21 | EKG ---
Date Performed: 11/06/2017 Time Performed: 22:35:28 PTAGE: 62 years EKG: ATRIAL FIBRILLATION, with premature ventricular contractions. MARKED LEFT AXIS DEVIATION Ri ght bundle branch block. ABNORMAL ECG PREVIOUS TRACING : 11/06/2017 22.04.45 DOCTOR: Matthew Núñez Interpretating Date/Time 11/08/2017 18:20:15
[2017-11-08] MEDS: PRAVASTATIN SOD 10 MG TAB PO SCH (20:48)
[2017-11-09] VITALS (12 sets, daily range): BP systolic 100–154; BP diastolic 56–85; PULSE 85–119; RESP 0–30; TEMP 97.3–98.7; O2SAT 88–94
[2017-11-09] MEDS: CHLORHEXIDINE GLUCONATE 2 % 1 PACK (2 CLOTHS)(taper/protocol) TOPICAL SCH (04:00)
[2017-11-09] MEDS: DILTIAZEM HCL 60 MG TAB PO SCH (06:04)
[2017-11-09] MEDS: INSULIN ASPART SUPPLEMENTAL SCALE SQ SCH ×4 (07:46→20:00)
--- NOTE | 2017-11-09 08:36 | PD.CARD.PN ---
Subjective Subjective Remarks Heart rate currently around 100. Discussed with RN, off Cardizem GTT. No chest pain, shortness breath, or palpitations. Hoping to be transferred out of ICU today. (Yves Perez) Objective Medications Current Medications Medications (Trade) Dose Ordered Sig/Isabel Route Start Time Stop Time Status Last Admin (Cardizem Inj) 25 mg UNSCH X1 PRN IV PUSH 11/06/17 22:30 11/06/17 22:20 (Glucophage) 500 mg DAILY PO 11/07/17 09:00 11/07/17 09:17 (Paxil) 40 mg DAILY PO 11/07/17 09:00 11/08/17 09:00 (Protonix) 20 mg DAILY PO 11/07/17 09:00 11/07/17 09:17 (Pravachol) 10 mg HS PO 11/07/17 21:00 11/08/17 20:48 (D50w (Vial) Inj) 50 ml UNSCH PRN IV PUSH 11/07/17 01:45 (Glucagon Inj) 1 mg UNSCH PRN OTHER 11/07/17 01:45 (NovoLOG SUPPLEMENTAL SCALE) 1 ACHS SLIDING SCALE SQ 11/07/17 08:00 11/08/17 20:48 (NS Flush) 2 ml UNSCH PRN IV FLUSH 11/07/17 02:00 (NS Flush) 2 ml BID IV FLUSH 11/07/17 09:00 11/08/17 20:47 (Tylenol) 650 mg Q4H PRN PO 11/07/17 02:00 (Zofran Inj) 4 mg Q6H PRN IVP 11/07/17 02:00 (Narcan Inj) 0.4 mg UNSCH PRN IV PUSH 11/07/17 02:00 (Rosalie-Colace) 1 tab BID PO 11/07/17 09:00 (Milk Of Magnesia Liq) 30 ml Q12H PRN PO 11/07/17 02:00 (Senokot) 17.2 mg Q12H PRN PO 11/07/17 02:00 (Dulcolax Supp) 10 mg DAILY PRN RECTAL 11/07/17 02:00 (Lactulose Liq) 30 ml DAILY PRN PO 11/07/17 02:00 Miscellaneous Information Patient in critical care unit? Ass... Q361D .XX 11/07/17 03:45 11/07/17 03:45 (Chlorhexidine 2% Cloth) 3 pack DAILY@04 TOPICAL 11/07/17 04:00 11/11/17 04:01 11/08/17 04:00 (Chlorhexidine 2% Cloth) 3 pack UNSCH PRN TOPICAL 11/07/17 03:45 11/12/17 03:40 (Lopressor) 50 mg Q12HR PO 11/07/17 21:00 11/08/17 20:47 (Aspirin Chew) 81 mg DAILY PO 11/08/17 09:00 11/08/17 09:00 (Eliquis) 5 mg BID PO 11/07/17 15:00 11/08/17 20:47 Diltiazem HCl 125 mg/Sodium Chloride 125 ml @ 5 mls/hr TITRATE PRN IV 11/08/17 01:30 11/08/17 01:46 (Cardizem) 60 mg Q6HR PO 11/08/17 12:00 11/09/17 06:04 (Lanoxin) 0.25 mg DAILY PO 11/09/17 09:00 Vital Signs / I&O Vital Signs Date Time Temp Pulse Resp B/P (MAP) Pulse Ox O2 Delivery O2 Flow Rate FiO2 11/09/17 06:00 95 11/09/17 04:00 91 11/09/17 04:00 91 19 154/76 (102) 89 11/09/17 02:00 94 11/09/17 00:00 110 11/09/17 00:00 97.3 110 22 100/56 (71) 93 11/08/17 22:00 108 11/08/17 20:15 93 Nasal Cannula 4.50 11/08/17 20:00 119 11/08/17 20:00 99.4 119 38 132/63 (86) 93 11/08/17 18:00 109 11/08/17 16:00 98.2 92 32 114/66 (82) 93 11/08/17 16:00 88 11/08/17 14:00 94 11/08/17 12:00 98.5 84 25 102/61 (75) 94 11/08/17 12:00 94 11/08/17 10:00 94 I/O 1/2911/08/17 11/08/17 11/09/17 11/09/17 11/09/17 06:59 14:59 22:59 06:59 14:59 22:59 Intake Total 240 ml 720 ml 0 ml Output Total 350 ml 800 ml 1050 ml Balance -110 ml -80 ml -1050 ml Intake Oral 240 ml 720 ml IV Total 0 ml Output Urine Total 350 ml 800 ml 1050 ml # Bowel Movements 1 0 Physical Exam GENERAL: Well-developed well-nourished. Morbidly obese. In no acute distress. NECK: No carotid bruits. No JVD. CARDIOVASCULAR: Irregular controlled rate and irregular rhythm. No murmur appreciated. RESPIRATORY: No accessory muscle use. Clear to auscultation. Breath sounds equal bilaterally. MUSCULOSKELETAL: No clubbing or cyanosis. No edema. NEUROLOGICAL: Awake and alert. Normal speech. Laboratory Laboratory Tests Test 11/08/17 11:40 11/09/17 05:02 Blood Urea Nitrogen 12 MG/DL Creatinine 0.62 MG/DL Random Glucose 138 MG/DL Calcium Level 8.4 MG/DL Sodium Level 139 MEQ/L Potassium Level 4.0 MEQ/L Chloride Level 104 MEQ/L Carbon Dioxide Level 25.2 MEQ/L Anion Gap 10 MEQ/L Estimat Glomerular Filtration Rate 131 ML/MIN Triglycerides Level 115 MG/DL Cholesterol Level 140 MG/DL LDL Cholesterol 86 MG/DL HDL Cholesterol 31.5 MG/DL Cholesterol/HDL Ratio 4.44 RATIO Digoxin Level 0.5 NG/ML Imaging Last Impressions Chest X-Ray 11/08/17 0000 Signed Impressions: Service Date/Time: Wednesday, November 08, 2017 09:56 - CONCLUSION: Cardiomegaly with slight interstitial densities likely interstitial edema with bibasilar atelectasis. Stephen Pena MD (Yves Perez) Assessment and Plan Assessment and Plan 62-year-old male with past medical history of A. fib, HLD, HTN, DM, depression, GERD who presented for shortness of breath. The patient stated that for the past week he felt like he was getting a cold. He states that he felt very fatigued and shortness of breath and presented to the ED. He was found to be in A. fib RVR rate 180s in the ED and received IV Cardizem. He denies any chest pain. His chest x-ray did show mild congestive failure upon admission and received IV Lasix. Atrial fibrillation with rapid ventricular response: Heart rate currently controlled. Titrate oral Cardizem/metoprolol. Digoxin added. Chadsvasc 3, started on Eliquis. Mild CHF: Improved s/p diuresis. Await 2-D echo, may decide on ischemic eval pending echo given risk factors. (Yves Perez) Assessment and Plan PO CCB PO BB PO digoxin DC cardizem gtt transfer to floor 2d echo today. rate control strategy. DC planning for tomorrow. (Daren Nguyễn MD) Yves Perez Nov 09, 2017 08:36 Daren Nguyễn MD Nov 09, 2017 11:50
[2017-11-09] MEDS: DIGOXIN 0.25 MG TAB PO SCH (08:53)
[2017-11-09] MEDS: ASPIRIN 81 MG CHEW TAB PO SCH (08:53)
[2017-11-09] MEDS: SODIUM CHLORIDE 0.9% FLUSH 10 ML FLUSH IV FLUSH SCH ×2 (08:53→20:00)
[2017-11-09] MEDS: DOCUSATE SODIUM 50 MG/SENNA 8.6 MG TAB PO SCH ×2 (08:53→20:00)
[2017-11-09] MEDS: PANTOPRAZOLE SOD 20 MG DELAYED RELEASE TAB PO SCH (08:53)
[2017-11-09] MEDS: METOPROLOL TARTRATE 50 MG TAB PO SCH ×2 (08:53→20:00)
[2017-11-09] MEDS: metFORMIN HCL 500 MG TAB PO SCH (08:53)
[2017-11-09] MEDS: APIXABAN 5 MG TABLET PO SCH ×2 (08:53→20:00)
[2017-11-09] MEDS: PARoxetine HCL 20 MG TAB PO SCH (08:54)
--- NOTE | 2017-11-09 11:15 | HHI.PR ---
Subjective Remarks No new complaints. Pt denies palpitations. Objective Vitals Vital Signs Date Time Temp Pulse Resp B/P (MAP) Pulse Ox O2 Delivery O2 Flow Rate FiO2 11/09/17 10:00 85 11/09/17 08:30 94 26 109/61 (77) 88 11/09/17 08:00 119 11/09/17 08:00 98 20 112/76 (88) 90 11/09/17 06:00 95 11/09/17 04:00 91 11/09/17 04:00 91 19 154/76 (102) 89 11/09/17 02:00 94 11/09/17 00:00 110 11/09/17 00:00 97.3 110 22 100/56 (71) 93 11/08/17 22:00 108 11/08/17 20:15 93 Nasal Cannula 4.50 11/08/17 20:00 119 11/08/17 20:00 99.4 119 38 132/63 (86) 93 11/08/17 18:00 109 11/08/17 16:00 98.2 92 32 114/66 (82) 93 11/08/17 16:00 88 11/08/17 14:00 94 11/08/17 12:00 98.5 84 25 102/61 (75) 94 11/08/17 12:00 94 Result Diagram: 11/07/17 1218 11/08/17 1140 Imaging Last Impressions Chest X-Ray 11/08/17 0000 Signed Impressions: Service Date/Time: Wednesday, November 08, 2017 09:56 - CONCLUSION: Cardiomegaly with slight interstitial densities likely interstitial edema with bibasilar atelectasis. Stephen Pena MD Objective Remarks GENERAL: This is a well-nourished, well-developed patient, in no apparent distress. CARDIOVASCULAR: irregular RESPIRATORY: Clear to auscultation. Breath sounds equal bilaterally. No wheezes , rales, or rhonchi. GASTROINTESTINAL: Abdomen soft, non-tender, nondistended. Normal active bowel sounds MUSCULOSKELETAL: Extremities without clubbing, cyanosis, or edema. NEURO: Alert & Oriented x4 to person, place, time, situation. Moves all ext x4 A/P Problem List: (1) Atrial fibrillation with RVR ICD Codes: I48.91 - Unspecified atrial fibrillation Status: Acute Plan: - comgmt with Cardiology - Echocardiogram --> pending - cardizem drip off since (11/08) - PO cardizem increased to 90mg q6h - metoprolol 100mg daily - digoxin 0.25mg daily - Outpt stress test per cardiology - Eliquis started - supportive care - anticipate d/c to home in 1-3 days (2) Congestive heart failure ICD Codes: I50.9 - Heart failure, unspecified Status: Acute Plan: - CHF d/t acute A.Fib with RVR - Pt BNP improved with IV lasix & pt clinically improved - CXR (11/08) --> mild CHF - echocardiogram --> pending (3) Elevated troponin I level ICD Codes: R74.8 - Abnormal levels of other serum enzymes Status: Acute Plan: - demand related d/t A.Fib Problem Qualifiers (1) Congestive heart failure: Qualified Codes: I50.9 - Heart failure, unspecified Ethan Mckeon DO Nov 09, 2017 11:15
[2017-11-09] MEDS: DILTIAZEM HCL 90 MG TAB PO SCH ×2 (12:12→17:37)
--- NOTE | 2017-11-09 15:32 | ECHRPT ---
Indication: a fib/flutter CONCLUSIONS Normal left ventricular size. The left ventricular systolic function is lojxtsul-xc-bwfvsyj reduced with an estimated ejection fra ction in the range of 35-40%. Mild mitral valve regurgitation. No aortic valve regurgitation. No aortic valve stenosis. There is mild tricuspid valve regurgitation. The estimated pulmonary arterial pressure is 40.5 mmHg. BP: / HR: Rhythm: MEASUREMENTS (Male / Female) Normal Values Technical Quality:Technically difficult study 2D ECHO LV Diastolic Diameter PLAX 5.2 cm 4.2 - 5.9 / 3.9 - 5.3 cm LV Systolic Diameter PLAX 4.4 cm IVS Diastolic Thickness 1.5 cm 0.6 - 1.0 / 0.6 - 0.9 cm LVPW Diastolic Thickness 1.5 cm 0.6 - 1.0 / 0.6 - 0.9 cm LV Relative Wall Thickness 0.6 RV Internal Dim ED PLAX 3.3 cm M-MODE Aortic Root Diameter MM 3.3 cm LA Systolic Diameter MM 4.6 cm LA Ao Ratio MM 1.4 AV Cusp Separation MM 1.8 cm DOPPLER LV E' Lateral Velocity 5.3 cm/s LV E' Septal Velocity 7.7 cm/s TR Peak Velocity 276.0 cm/s TR Peak Gradient 30.5 mmHg Right Atrial Pressure 10.0 mmHg Pulmonary Artery Systolic Pressu 40.5 mmHg Right Ventricular Systolic Press 40.5 mmHg FINDINGS LEFT VENTRICLE Normal left ventricular size. The left ventricular systolic function is sipwfskc-la-recmrgr reduced with an estimated ejection fra ction in the range of 35-40%. RIGHT VENTRICLE Normal right ventricular size and systolic function. LEFT ATRIUM The left atrial size is normal. RIGHT ATRIUM The right atrial size is normal. ATRIAL SEPTUM Normal atrial septal thickness without atrial level shunting by limited color doppler interrogation. AORTA The aortic root and proximal ascending aorta are normal in size on limited imaging. MITRAL VALVE Structurally normal mitral valve. Mild mitral valve regurgitation. AORTIC VALVE Trileaflet aortic valve. No aortic valve regurgitation. No aortic valve stenosis. TRICUSPID VALVE Structurally normal tricuspid valve. There is mild tricuspid valve regurgitation. The estimated pulmonary arterial pressure is 40.5 mmHg. PULMONARY VALVE No pulmonary valve regurgitation or stenosis. VESSELS The inferior vena cava is normal in size. PERICARDIUM No pericardial effusion. Daren Nguyễn MD, FACC (Electronically Signed) Final Date:09 November 2017 15:31
[2017-11-09] MEDS: PRAVASTATIN SOD 10 MG TAB PO SCH (20:00)
[2017-11-10] VITALS (10 sets, daily range): BP systolic 89–147; BP diastolic 53–79; PULSE 67–108; RESP 12–29; TEMP 98.1–98.3; O2SAT 89–93
[2017-11-10] MEDS: DILTIAZEM HCL 90 MG TAB PO SCH ×5 (01:15→23:54)
[2017-11-10] MEDS: CHLORHEXIDINE GLUCONATE 2 % 1 PACK (2 CLOTHS)(taper/protocol) TOPICAL SCH (04:00)
[2017-11-10] MEDS: INSULIN ASPART SUPPLEMENTAL SCALE SQ SCH ×4 (08:00→20:37)
--- NOTE | 2017-11-10 08:27 | PD.CARD.PN ---
Subjective Subjective Remarks afib controlled little hypotensive today on CPAP no CP Objective Medications Current Medications Medications (Trade) Dose Ordered Sig/Isabel Route Start Time Stop Time Status Last Admin (Cardizem Inj) 25 mg UNSCH X1 PRN IV PUSH 11/06/17 22:30 11/06/17 22:20 (Glucophage) 500 mg DAILY PO 11/07/17 09:00 11/09/17 08:53 (Paxil) 40 mg DAILY PO 11/07/17 09:00 11/09/17 08:54 (Protonix) 20 mg DAILY PO 11/07/17 09:00 11/09/17 08:53 (Pravachol) 10 mg HS PO 11/07/17 21:00 11/09/17 20:00 (D50w (Vial) Inj) 50 ml UNSCH PRN IV PUSH 11/07/17 01:45 (Glucagon Inj) 1 mg UNSCH PRN OTHER 11/07/17 01:45 (NovoLOG SUPPLEMENTAL SCALE) 1 ACHS SLIDING SCALE SQ 11/07/17 08:00 11/08/17 20:48 (NS Flush) 2 ml UNSCH PRN IV FLUSH 11/07/17 02:00 (NS Flush) 2 ml BID IV FLUSH 11/07/17 09:00 11/09/17 20:00 (Tylenol) 650 mg Q4H PRN PO 11/07/17 02:00 (Zofran Inj) 4 mg Q6H PRN IVP 11/07/17 02:00 (Narcan Inj) 0.4 mg UNSCH PRN IV PUSH 11/07/17 02:00 (Rosalie-Colace) 1 tab BID PO 11/07/17 09:00 11/09/17 08:53 (Milk Of Magnesia Liq) 30 ml Q12H PRN PO 11/07/17 02:00 (Senokot) 17.2 mg Q12H PRN PO 11/07/17 02:00 (Dulcolax Supp) 10 mg DAILY PRN RECTAL 11/07/17 02:00 (Lactulose Liq) 30 ml DAILY PRN PO 11/07/17 02:00 Miscellaneous Information Patient in critical care unit? Ass... Q361D .XX 11/07/17 03:45 11/07/17 03:45 (Chlorhexidine 2% Cloth) 3 pack DAILY@04 TOPICAL 11/07/17 04:00 11/11/17 04:01 11/10/17 04:00 (Chlorhexidine 2% Cloth) 3 pack UNSCH PRN TOPICAL 11/07/17 03:45 11/12/17 03:40 (Lopressor) 50 mg Q12HR PO 11/07/17 21:00 11/09/17 20:00 (Aspirin Chew) 81 mg DAILY PO 11/08/17 09:00 11/09/17 08:53 (Eliquis) 5 mg BID PO 11/07/17 15:00 11/09/17 20:00 Diltiazem HCl 125 mg/Sodium Chloride 125 ml @ 5 mls/hr TITRATE PRN IV 11/08/17 01:30 11/08/17 01:46 (Lanoxin) 0.25 mg DAILY PO 11/09/17 09:00 11/09/17 08:53 (Cardizem) 90 mg Q6HR PO 11/09/17 12:00 11/10/17 05:03 Vital Signs / I&O Vital Signs Date Time Temp Pulse Resp B/P (MAP) Pulse Ox O2 Delivery O2 Flow Rate FiO2 11/10/17 06:00 86 11/10/17 04:00 101 11/10/17 04:00 98.1 101 23 116/59 (78) 93 11/10/17 00:00 89 11/10/17 00:00 98.3 89 12 130/79 (96) 89 11/09/17 20:00 86 11/09/17 20:00 98.5 86 30 135/85 (102) 91 11/09/17 19:49 92 21 11/09/17 16:00 93 0 142/79 (100) 91 11/09/17 16:00 93 11/09/17 13:01 102 11/09/17 12:00 98 11/09/17 12:00 98.7 11/09/17 12:00 98 25 94 11/09/17 10:00 85 11/09/17 08:30 94 26 109/61 (77) 88 I/O 11/09/17 11/09/17 11/09/17 11/10/17 11/10/17 11/10/17 07:00 15:00 23:00 07:00 15:00 23:00 Intake Total 0 ml 640 ml 480 ml Output Total 1050 ml Balance -1050 ml 640 ml 480 ml Intake Oral 640 ml 480 ml IV Total 0 ml Output Urine Total 1050 ml # Voids 5 3 # Bowel Movements 0 Physical Exam EYES: No scleral icterus. No injection or drainage. NECK: Supple, trachea midline. No JVD or lymphadenopathy. CARDIOVASCULAR: IR IR RESPIRATORY: Breath sounds equal bilaterally. No accessory muscle use. GASTROINTESTINAL: Abdomen soft, non-tender, nondistended. MUSCULOSKELETAL: No cyanosis, or edema. BACK: Nontender without obvious deformity. No CVA tenderness. Laboratory Laboratory Tests Test 11/10/17 05:05 Imaging Last Impressions Chest X-Ray 11/08/17 0000 Signed Impressions: Service Date/Time: Wednesday, November 08, 2017 09:56 - CONCLUSION: Cardiomegaly with slight interstitial densities likely interstitial edema with bibasilar atelectasis. Stephen Pena MD Assessment and Plan Assessment and Plan afib RVR - CCB + BB. hold BB this am and give if BP improves cont dig cardiomyopathy - likely rate related. no CP. no h/o CAD. lexiscan today if faiza nonischemic and rate controlled, may be able to go home no MUSA or ARB due to hypotension Daren Nguyễn MD Nov 10, 2017 08:27
[2017-11-10] MEDS: METOPROLOL TARTRATE 50 MG TAB PO SCH ×2 (08:52→20:36)
[2017-11-10] MEDS: ASPIRIN 81 MG CHEW TAB PO SCH (09:05)
[2017-11-10] MEDS: metFORMIN HCL 500 MG TAB PO SCH (09:05)
[2017-11-10] MEDS: PARoxetine HCL 20 MG TAB PO SCH (09:05)
[2017-11-10] MEDS: PANTOPRAZOLE SOD 20 MG DELAYED RELEASE TAB PO SCH (09:05)
[2017-11-10] MEDS: APIXABAN 5 MG TABLET PO SCH ×2 (09:05→20:36)
[2017-11-10] MEDS: DIGOXIN 0.25 MG TAB PO SCH (09:06)
[2017-11-10] MEDS: DOCUSATE SODIUM 50 MG/SENNA 8.6 MG TAB PO SCH ×2 (09:06→20:37)
[2017-11-10] MEDS: SODIUM CHLORIDE 0.9% FLUSH 10 ML FLUSH IV FLUSH SCH ×2 (09:09→20:36)
[2017-11-10 09:33] LABS: HEMATOCRIT 44.6 % (39.0-51.0); HEMOGLOBIN 15.6 GM/DL (13.0-17.0); MEAN CELL VOLUME 89.2 FL (80.0-100.0); MEAN CORPUSCULAR HEMOGLOBIN 31.2 PG (27.0-34.0); MEAN CORPUSCULAR HGB CONC 34.9 % (32.0-36.0); PLATELET COUNT 210 TH/MM3 (150-450); RED BLOOD COUNT 4.99 MIL/MM3 (4.50-5.90); RED CELL DISTRIBUTION WIDTH 13.5 % (11.6-17.2); WHITE BLOOD COUNT 7.1 TH/MM3 (4.0-11.0)
[2017-11-10] MEDS: LORazepam 2 MG/ML VIAL IV PUSH PRN ×2 (13:25→20:38)
--- NOTE | 2017-11-10 17:10 | HHI.PR ---
Subjective Remarks Patient resting in bed HR fluctuating between 80's to 108 bpm patient having lexiscan will take two days due to weight offers no new complaints Objective Vitals Vital Signs Date Time Temp Pulse Resp B/P (MAP) Pulse Ox O2 Delivery O2 Flow Rate FiO2 11/10/17 16:00 95 11/10/17 12:00 108 11/10/17 12:00 108 29 147/74 (98) 93 11/10/17 11:05 89 13 139/79 (99) 11/10/17 08:06 67 20 127/73 (91) 90 11/10/17 08:00 71 18 89/53 (65) 91 11/10/17 08:00 78 11/10/17 06:00 86 11/10/17 04:00 101 11/10/17 04:00 98.1 101 23 116/59 (78) 93 11/10/17 00:00 89 11/10/17 00:00 98.3 89 12 130/79 (96) 89 11/09/17 20:00 86 11/09/17 20:00 98.5 86 30 135/85 (102) 91 11/09/17 19:49 92 21 Result Diagram: 11/10/17 0900 11/08/17 1140 Other Results Laboratory Tests Test 11/08/17 11:40 11/09/17 05:02 11/10/17 09:00 Blood Urea Nitrogen 12 MG/DL Creatinine 0.62 MG/DL Random Glucose 138 MG/DL Calcium Level 8.4 MG/DL Sodium Level 139 MEQ/L Potassium Level 4.0 MEQ/L Chloride Level 104 MEQ/L Carbon Dioxide Level 25.2 MEQ/L Anion Gap 10 MEQ/L Estimat Glomerular Filtration Rate 131 ML/MIN Triglycerides Level 115 MG/DL Cholesterol Level 140 MG/DL LDL Cholesterol 86 MG/DL HDL Cholesterol 31.5 MG/DL Cholesterol/HDL Ratio 4.44 RATIO Digoxin Level 0.5 NG/ML White Blood Count 7.1 TH/MM3 Red Blood Count 4.99 MIL/MM3 Hemoglobin 15.6 GM/DL Hematocrit 44.6 % Mean Corpuscular Volume 89.2 FL Mean Corpuscular Hemoglobin 31.2 PG Mean Corpuscular Hemoglobin Concent 34.9 % Red Cell Distribution Width 13.5 % Platelet Count 210 TH/MM3 Mean Platelet Volume 9.0 FL Imaging Last Impressions Chest X-Ray 11/08/17 0000 Signed Impressions: Service Date/Time: Wednesday, November 08, 2017 09:56 - CONCLUSION: Cardiomegaly with slight interstitial densities likely interstitial edema with bibasilar atelectasis. Stephen Pena MD Objective Remarks GENERAL: This is a well-nourished, well-developed patient, in no apparent distress. CARDIOVASCULAR: irregular RESPIRATORY: Clear to auscultation. Breath sounds equal bilaterally. No wheezes , rales, or rhonchi. GASTROINTESTINAL: Abdomen soft, non-tender, nondistended. Normal active bowel sounds MUSCULOSKELETAL: Extremities without clubbing, cyanosis, or edema. NEURO: Alert & Oriented x4 to person, place, time, situation. Moves all ext x4 A/P Problem List: (1) Atrial fibrillation with RVR ICD Codes: I48.91 - Unspecified atrial fibrillation Status: Acute Plan: - comgmt with Cardiology - Echocardiogram --> Normal left ventricular size. The left ventricular systolic function is vhykgkka-ni-nbshtpou reduced with an estimated ejection fraction in the range of 35-40%. Mild mitral valve regurgitation. No aortic valve regurgitation. No aortic valve stenosis. There is mild tricuspid valve regurgitation. The estimated pulmonary arterial pressure is 40.5 mmHg. - cardizem drip off since (11/08) - PO cardizem increased to 90mg q6h - metoprolol 100mg daily - digoxin 0.25mg daily - Patient currently having Lexiscan will take two dasys due to patient's weight - Eliquis (11/07) - supportive care - anticipate d/c to home in 1-2 days (2) Congestive heart failure ICD Codes: I50.9 - Heart failure, unspecified Status: Acute Plan: - CHF d/t acute A.Fib with RVR - Pt BNP improved with IV lasix & pt clinically improved - CXR (11/08) --> mild CHF - echocardiogram --> Normal left ventricular size. The left ventricular systolic function is beliyccs-ri-lkwlftjt reduced with an estimated ejection fraction in the range of 35-40%. Mild mitral valve regurgitation. No aortic valve regurgitation. No aortic valve stenosis. There is mild tricuspid valve regurgitation. The estimated pulmonary arterial pressure is 40.5 mmHg. - Per cardiology cardiomyopathy may be rate related. Patient will need follow up echocardiogram as outpatient (3) Elevated troponin I level ICD Codes: R74.8 - Abnormal levels of other serum enzymes Status: Acute Plan: - demand related d/t A.Fib Assessment and Plan Patient examined. Assessment and plan formulated with Yuridia Modi PA-C. I agree with the above. - Pt will have 2 day lexiscan. - await results. Problem Qualifiers (1) Congestive heart failure: Qualified Codes: I50.9 - Heart failure, unspecified Yuridia Modi Nov 10, 2017 17:10 Ethan Mckeon DO Nov 11, 2017 14:00
[2017-11-10] MEDS: PRAVASTATIN SOD 10 MG TAB PO SCH (20:37)
[2017-11-11] VITALS (12 sets, daily range): BP systolic 119–140; BP diastolic 62–84; PULSE 67–104; RESP 16–20; TEMP 97.2–99.5; O2SAT 93–94
[2017-11-11] MEDS: CHLORHEXIDINE GLUCONATE 2 % 1 PACK (2 CLOTHS)(taper/protocol) TOPICAL SCH (04:00)
[2017-11-11] MEDS: DILTIAZEM HCL 90 MG TAB PO SCH (06:02)
--- NOTE | 2017-11-11 07:50 | PD.CARD.PN ---
Subjective Subjective Remarks Heart rate currently controlled this morning. The patient denies any chest pain , shortness breath, or palpitations. The patient is nervous about the stress test today. Objective Medications Current Medications Medications (Trade) Dose Ordered Sig/Isabel Route Start Time Stop Time Status Last Admin (Cardizem Inj) 25 mg UNSCH X1 PRN IV PUSH 11/06/17 22:30 11/06/17 22:20 (Glucophage) 500 mg DAILY PO 11/07/17 09:00 11/10/17 09:05 (Paxil) 40 mg DAILY PO 11/07/17 09:00 11/10/17 09:05 (Protonix) 20 mg DAILY PO 11/07/17 09:00 11/10/17 09:05 (Pravachol) 10 mg HS PO 11/07/17 21:00 11/10/17 20:37 (D50w (Vial) Inj) 50 ml UNSCH PRN IV PUSH 11/07/17 01:45 (Glucagon Inj) 1 mg UNSCH PRN OTHER 11/07/17 01:45 (NovoLOG SUPPLEMENTAL SCALE) 1 ACHS SLIDING SCALE SQ 11/07/17 08:00 11/08/17 20:48 (NS Flush) 2 ml UNSCH PRN IV FLUSH 11/07/17 02:00 (NS Flush) 2 ml BID IV FLUSH 11/07/17 09:00 11/10/17 20:36 (Tylenol) 650 mg Q4H PRN PO 11/07/17 02:00 (Zofran Inj) 4 mg Q6H PRN IVP 11/07/17 02:00 (Narcan Inj) 0.4 mg UNSCH PRN IV PUSH 11/07/17 02:00 (Rosalie-Colace) 1 tab BID PO 11/07/17 09:00 11/10/17 20:37 (Milk Of Magnesia Liq) 30 ml Q12H PRN PO 11/07/17 02:00 (Senokot) 17.2 mg Q12H PRN PO 11/07/17 02:00 (Dulcolax Supp) 10 mg DAILY PRN RECTAL 11/07/17 02:00 (Lactulose Liq) 30 ml DAILY PRN PO 11/07/17 02:00 Miscellaneous Information Patient in critical care unit? Ass... Q361D .XX 11/07/17 03:45 11/07/17 03:45 (Chlorhexidine 2% Cloth) 3 pack UNSCH PRN TOPICAL 11/07/17 03:45 11/12/17 03:40 (Lopressor) 50 mg Q12HR PO 11/07/17 21:00 11/10/17 20:36 (Aspirin Chew) 81 mg DAILY PO 11/08/17 09:00 11/10/17 09:05 (Eliquis) 5 mg BID PO 11/07/17 15:00 11/10/17 20:36 Diltiazem HCl 125 mg/Sodium Chloride 125 ml @ 5 mls/hr TITRATE PRN IV 11/08/17 01:30 11/08/17 01:46 (Lanoxin) 0.25 mg DAILY PO 11/09/17 09:00 11/10/17 09:06 (Cardizem) 90 mg Q6HR PO 11/09/17 12:00 11/11/17 06:02 (Ativan Inj) 1 mg Q4H PRN IV PUSH 11/10/17 13:15 11/10/17 20:38 Vital Signs / I&O Vital Signs Date Time Temp Pulse Resp B/P (MAP) Pulse Ox O2 Delivery O2 Flow Rate FiO2 11/11/17 04:09 72 11/11/17 04:00 98.8 72 20 129/81 (97) 93 11/11/17 00:07 78 11/11/17 00:00 99.5 67 20 128/81 (97) 94 11/11/17 00:00 Room Air 11/10/17 23:59 91 11/10/17 20:00 83 11/10/17 20:00 98.3 103 22 126/72 (90) 92 11/10/17 16:00 95 11/10/17 16:00 98.1 11/10/17 12:00 108 11/10/17 12:00 108 29 147/74 (98) 93 11/10/17 11:05 89 13 139/79 (99) 11/10/17 08:06 67 20 127/73 (91) 90 11/10/17 08:00 71 18 89/53 (65) 91 11/10/17 08:00 78 I/O 1/31/18 1/3111/10/17 11/11/17 11/11/17 11/11/17 07:00 15:00 23:00 07:00 15:00 23:00 Intake Total 480 ml 520 ml 300 ml Output Total 500 ml Balance 480 ml 520 ml -200 ml Intake Oral 480 ml 520 ml 300 ml Output Urine Total 500 ml Stool Total 0 ml # Voids 3 3 Physical Exam GENERAL: Well-developed well-nourished. Morbidly obese. In no acute distress. NECK: No carotid bruits. No JVD. CARDIOVASCULAR: Irregular controlled rate and irregular rhythm. No murmur appreciated. RESPIRATORY: No accessory muscle use. Clear to auscultation. Breath sounds equal bilaterally. MUSCULOSKELETAL: No clubbing or cyanosis. No edema. NEUROLOGICAL: Awake and alert. Normal speech. Laboratory Laboratory Tests Test 11/10/17 09:00 White Blood Count 7.1 TH/MM3 Red Blood Count 4.99 MIL/MM3 Hemoglobin 15.6 GM/DL Hematocrit 44.6 % Mean Corpuscular Volume 89.2 FL Mean Corpuscular Hemoglobin 31.2 PG Mean Corpuscular Hemoglobin Concent 34.9 % Red Cell Distribution Width 13.5 % Platelet Count 210 TH/MM3 Mean Platelet Volume 9.0 FL Imaging Last Impressions Chest X-Ray 11/08/17 0000 Signed Impressions: Service Date/Time: Wednesday, November 08, 2017 09:56 - CONCLUSION: Cardiomegaly with slight interstitial densities likely interstitial edema with bibasilar atelectasis. Stephen Pena MD Assessment and Plan Assessment and Plan 62-year-old male with past medical history of A. fib, HLD, HTN, DM, depression, GERD who presented for shortness of breath. The patient stated that for the past week he felt like he was getting a cold. He states that he felt very fatigued and shortness of breath and presented to the ED. He was found to be in A. fib RVR rate 180s in the ED and received IV Cardizem. He denies any chest pain. His chest x-ray did show mild congestive failure upon admission and received IV Lasix. Atrial fibrillation with rapid ventricular response: Heart rate currently controlled. Titrate oral Cardizem/metoprolol. Digoxin added. Chadsvasc 3, started on Eliquis. Cardiomyopathy: Echo with EF 35-40 %. Suspected rate related, both checking Lexiscan to rule out ischemic etiology. No ACEi or ARB due to hypotension. If Lexiscan nonischemic and heart rate is controlled, may be able to go home Long,Yves MORSE Nov 11, 2017 07:50
[2017-11-11] MEDS: INSULIN ASPART SUPPLEMENTAL SCALE SQ SCH ×4 (07:58→20:34)
[2017-11-11] MEDS ORDERED: REGADENOSON INJ 0.4 MG/5 ML SYR ONE (08:15)
[2017-11-11] MEDS ORDERED: APIX5TAB PO (08:37)
[2017-11-11] MEDS ORDERED: METO-309 PO (08:37)
[2017-11-11] MEDS ORDERED: CARD360C PO (08:37)
[2017-11-11] MEDS ORDERED: DIGO0.25 PO (08:37)
--- NOTE | 2017-11-11 10:01 | RADRPT ---
EXAM DATE/TIME: 11/10/2017 10:00 [place] COMPARISON: No previous studies available for comparison. INDICATIONS : Chest pain and dyspnea. Congestive heart failure. Atrial fibrillation. DOSE: 32.9 mCi Tc99m Myoview at stress. 32.1 mCi Tc99m Myoview at rest. 0.4 mg Lexiscan STRESS SYMPTOMS: Dyspnea. EJECTION FRACTION: 37% MEDICAL HISTORY : Cardiovascular disease. Hypertension. Diabetes mellitus type 2. SURGICAL HISTORY : None. ENCOUNTER: Initial ACUITY: 1 day PAIN SCALE: 0/10 LOCATION: Bilateral chest TECHNIQUE: The patient underwent pharmacologic stress with infusion of prescribed dose. Continuous ECG tracing was monitored during stress. Gated SPECT imaging was performed after stress and conventional SPECT i maging was performed at rest. The examination was performed on a SPECT/CT scanner, both attenuation and non-corrected datasets were reviewed. FINDINGS: DISTRIBUTION: The maximum perfused segment at stress is in the anteroseptal wall. PERFUSION STUDY: There is a moderate size predominantly reversible perfusion defect involving the anterior and anteros eptal wall. GATED STUDY: There is dyskinesis involving the anterior septal wall and decreased calculated ejection fraction of 37%. CONCLUSION: 1. Predominantly reversible moderate sized anterior and apical wall defect suggesting ischemia in the left anterior descending artery distribution. 2. Decreased calculated ejection fraction 37% with mild dyskinesis in the septum. RISK CATEGORY: Intermediate (1-3% Annual Mortality Rate) Obey Gray MD on November 11, 2017 at 9:49 Board Certified Radiologist. This report was verified electronically.
[2017-11-11] MEDS: DOCUSATE SODIUM 50 MG/SENNA 8.6 MG TAB PO SCH ×2 (11:07→20:26)
[2017-11-11] MEDS: PANTOPRAZOLE SOD 20 MG DELAYED RELEASE TAB PO SCH (11:07)
[2017-11-11] MEDS: APIXABAN 5 MG TABLET PO SCH (11:07)
[2017-11-11] MEDS: metFORMIN HCL 500 MG TAB PO SCH (11:08)
[2017-11-11] MEDS: DIGOXIN 0.25 MG TAB PO SCH (11:08)
[2017-11-11] MEDS: PARoxetine HCL 20 MG TAB PO SCH (11:08)
[2017-11-11] MEDS: METOPROLOL TARTRATE 50 MG TAB PO SCH ×2 (11:08→20:26)
[2017-11-11] MEDS: ASPIRIN 81 MG CHEW TAB PO SCH (11:08)
[2017-11-11] MEDS: SODIUM CHLORIDE 0.9% FLUSH 10 ML FLUSH IV FLUSH SCH ×2 (11:09→19:24)
--- NOTE | 2017-11-11 12:21 | HHI.PR ---
Subjective Remarks Pt denies chest pain. No palpitations. Pt is nervous about abnormal lexiscan & LHC tomorrow. Objective Vitals Vital Signs Date Time Temp Pulse Resp B/P (MAP) Pulse Ox O2 Delivery O2 Flow Rate FiO2 11/11/17 10:35 133/77 (95) 11/11/17 08:00 73 11/11/17 08:00 97.2 83 20 131/84 (100) 93 11/11/17 04:09 72 11/11/17 04:00 98.8 72 20 129/81 (97) 93 11/11/17 00:07 78 11/11/17 00:00 99.5 67 20 128/81 (97) 94 11/11/17 00:00 Room Air 11/10/17 23:59 91 11/10/17 20:00 83 11/10/17 20:00 98.3 103 22 126/72 (90) 92 11/10/17 16:00 95 11/10/17 16:00 98.1 Result Diagram: 11/10/17 0900 11/08/17 1140 Imaging Last Impressions Myocardial Perfusion Scan Nuc Med 11/10/17 0000 Signed Impressions: Service Date/Time: Friday, November 10, 2017 10:00 - CONCLUSION: 1. Predominantly reversible moderate sized anterior and apical wall defect suggesting ischemia in the left anterior descending artery distribution. 2. Decreased calculated ejection fraction 37%% with mild dyskinesis in the septum. RISK CATEGORY: Intermediate (1-3%% Annual Mortality Rate) Obey Gray MD Chest X-Ray 11/08/17 0000 Signed Impressions: Service Date/Time: Wednesday, November 08, 2017 09:56 - CONCLUSION: Cardiomegaly with slight interstitial densities likely interstitial edema with bibasilar atelectasis. Stephen Pena MD Objective Remarks GENERAL: This is a well-nourished, well-developed patient, in no apparent distress. CARDIOVASCULAR: irregular RESPIRATORY: Clear to auscultation. Breath sounds equal bilaterally. No wheezes , rales, or rhonchi. GASTROINTESTINAL: Abdomen soft, non-tender, nondistended. Normal active bowel sounds MUSCULOSKELETAL: Extremities without clubbing, cyanosis, or edema. NEURO: Alert & Oriented x4 to person, place, time, situation. Moves all ext x4 A/P Problem List: (1) Atrial fibrillation with RVR ICD Codes: I48.91 - Unspecified atrial fibrillation Status: Acute Plan: - comgmt with Cardiology - Echocardiogram --> Normal left ventricular size. The left ventricular systolic function is viwfcshl-zj-hjraiyig reduced with an estimated ejection fraction in the range of 35-40%. Mild mitral valve regurgitation. No aortic valve regurgitation. No aortic valve stenosis. There is mild tricuspid valve regurgitation. The estimated pulmonary arterial pressure is 40.5 mmHg. - cardizem drip off since (11/08) - PO cardizem increased to 90mg q6h - metoprolol 100mg daily - digoxin 0.25mg daily - Lexiscan (11/11/17) - Predominantly reversible moderate sized anterior and apical wall defect suggesting ischemia in the left anterior descending artery distribution. 2. Decreased calculated ejection fraction 37%% with mild dyskinesis in the septum - Case d/w Dr. Nguyễn (11/11/17). Will proceed with [facility]. - Eliquis (11/07), hold - supportive care - anticipate d/c to home in 1-2 days (2) Congestive heart failure ICD Codes: I50.9 - Heart failure, unspecified Status: Acute Plan: - CHF d/t acute A.Fib with RVR - Pt BNP improved with IV lasix & pt clinically improved - CXR (11/08) --> mild CHF - echocardiogram --> Normal left ventricular size. The left ventricular systolic function is rzqsjixy-pc-xtrhslsy reduced with an estimated ejection fraction in the range of 35-40%. Mild mitral valve regurgitation. No aortic valve regurgitation. No aortic valve stenosis. There is mild tricuspid valve regurgitation. The estimated pulmonary arterial pressure is 40.5 mmHg. - Per cardiology cardiomyopathy may be rate related. Patient will need follow up echocardiogram as outpatient (3) Elevated troponin I level ICD Codes: R74.8 - Abnormal levels of other serum enzymes Status: Acute Plan: - see above Problem Qualifiers (1) Congestive heart failure: Qualified Codes: I50.9 - Heart failure, unspecified Ethan Mckeon DO Nov 11, 2017 12:21
[2017-11-11] MEDS: LORazepam 2 MG/ML VIAL IV PUSH PRN ×2 (13:09→19:23)
[2017-11-11] MEDS: DILTIAZEM-CD 180 MG CAP ER PO SCH (13:09)
[2017-11-11] MEDS: PRAVASTATIN SOD 10 MG TAB PO SCH (20:26)
[2017-11-12] VITALS (10 sets, daily range): BP systolic 111–140; BP diastolic 66–84; PULSE 52–78; RESP 17–20; TEMP 97.3–98.5; O2SAT 93–96
[2017-11-12] MEDS ORDERED: NITROGLYCERIN INJ 5 ML ONE (07:36)
[2017-11-12] MEDS ORDERED: HEPARIN SODIUM - IV 10,000 UNITS/10 ML VIAL ONE (07:36)
[2017-11-12] MEDS ORDERED: HEPARIN-NS/PF INJ 500 ML ONE (07:36)
[2017-11-12] MEDS: INSULIN ASPART SUPPLEMENTAL SCALE SQ SCH ×4 (08:00→21:00)
[2017-11-12] MEDS ORDERED: MIDAZOLAM HCL 2 MG/2 ML VIAL ONE (08:21)
--- NOTE | 2017-11-12 08:55 | CATHPROC ---
Workers On Call HIS Report Study Information Study Number Admission Scheduled Start Study Start [id number] Nov 07 2017 12:53AM 11/12/2017 11/12/2017 [place] Service Cardiac Catheterization Admit Source Facility Department Other [facility] - [facility] Physician and Clinical Staff Initial Daren Lagunas Material Handling Crew Supervisorlinda Tipton RN, Rafa Fregoso cathlab, cathlab Recorder Chavez Eckert RCIS(BS) Scrub Adam HaiderRT(R) Procedures Performed Procedure Location (Site) Vessel Name Coronary Angiograms LCA Left Coronary Coronary Angiograms RCA Right Coronary L Heart Cath Equipment Time Folding Rules Printing Machine Operator Description Size Mfg Part Number Used/Scraped TRANSDUCER, TRUWAVE [id number] 08:17 CALVIN FARIA * Used W/STOCKCOCK *[id number] *[id number] *[id number] 08:17 [employer] INDUSTRIES PACK, CCL CUSTOM * Used *[id number] 08:17 SoFi SUPPORT, ARTERIAL ADULT 80119 *[id number] Used [id number] 08:17 [employer]ix PACER PEN, SKIN DUAL W/ RULER * Used *[id number] BAND, RADIAL COMPRESSION TR [id number] 08:52 Ribbon 29CM Used LARGE 29 *[id number] SHEATH, FR6 RADIAL PRELUDE 08:17 Ribbon FR 6 [id number] Used EASE 11CM [id number] 08:17 Ribbon WIRE, EXCHANGE 260CM 3MMJ 260CM Used *[id number] 08:17 NYCOMED OMNIPAQUE, 350 MG, 150ML 150ML [id number] Used [id number] 08:17 [employer] BLANKET,WARM AIR CCL * Used *[id number] History: Current Medications Medication Dosage/Unit Route Frequency Last Date/Time Taken Beta Suleiman LISINOPRIL ASA History: Allergies Allergy Reaction No Known Allergies History: Risk Factors Family History of Hypertension Dyslipidemia Previous SC Previous Heart Failure Premature CAD No No No No No Prior Valve Prior PCI Prior CABG Surgery No No No Cerebrovascular Peripheral Artery Chronic Lung On Dialysis Diabetes Disease Disease Disease No No No Yes No History: Symptoms/Diagnosis Selection Items Chest pain Palpitations SOB History: Stress Tests Stress or Imaging Studies Performed Yes Standard Exercise Stress Test No Stress Echo No Stress Test SPECT Stress Test SPECT Result Stress Test SPECT Ischemia Risk/Extent Yes Positive High Stress Test CMR No Cardiac CTA Coronary Calcium Score No No History: Other Current Smoker No Labs Hgb (g/dl) Hct (%) WBC (l/cumm) Platelets (thousands) 11.60-17.00 35.00-51.00 4.00-11.00 150.00-450.00 15.6 44.6 7.1 210 Glucose (mg/dl) BUN (mg/dl) Creatinine (mg/dl) BUN:Creatinine (1:x) 74.00-106.00 7.00-18.00 0.50-1.30 10.00-20.00 138 12 0.6 20 Na (meq/l) K (meq/l) 136.00-145.00 3.50-5.10 139 4 INR (PTT:PT) 0.90-1.10 1 Troponin I (ng/ml) CPK-MB (ng/ML) 0.02-0.05 0.50-3.60 0.03 Not Drawn Medication Medication Total Dose (Bolus/Oral) Medication Total Dosage/Unit 1% XYLOCAINE 2 mL FENTANYL 50 mcg HEPARIN 5000 units NTG (IC) 100 mcg VERSED 1 mg Medications (Bolus/Oral) Medication Time Given Dosage/Unit Administered By Reason FENTANYL 11/12/2017 8:35:55 AM 50 mcg Rafa Tipton RN 50 mcg FENTANYL given in lab by Rafa Tipton RN in Left Antecubital via Peripheral IV. Ordered by Daren Stover. VERSED 11/12/2017 8:36:46 AM 1 mg Rafa Tipton RN 1 mg VERSED given in lab by Rafa Tipton RN in Left Antecubital via Peripheral IV. Ordered by Daren Nguyễn. 1% XYLOCAINE 11/12/2017 8:39:28 AM 2 mL Daren Nguyễn 2 mL 1% XYLOCAINE given in lab by Daren Nguyễn in Right Radial via Subcutaneous. NTG (IC) 11/12/2017 8:40:44 AM 100 mcg Daren Nguyễn 100 mcg NTG (IC) given in lab by Daren Nguyễn in Right Radial via Intra-arterial. HEPARIN 11/12/2017 8:42:03 AM 5000 units Rafa Tipton RN 5000 units HEPARIN given in lab by Rafa Tipton RN in Left Antecubital via Peripheral IV. Ordered by Daren Nguyễn. Medication (Drip) Medication Time Given Dosage/Unit Concentration/Unit Diluent (ml) Solution IV Solutions 11/12/2017 8:13:21 AM 0 mL (IV) 500 NaCl .9 Patient arrived on IV Solutions given by cathlab, cathlab in Left Antecubital via Peripheral IV. Pump /Drip Flow = 20 ml/hr using NaCl .9. Initial Case Assessment Cardiovascular HR Rhythm NIBP Chest Pain 103 paced 139/88 0 Edema Present Skin color Skin None Normal Warm Dry Circulatory - Right Pulses Dorsalis Pedis Femoral Radial 2 2 2 Scale (0,1,2,3,4,d) Scale (0,1,2,3,4,d) Neurological State Oriented to time-place- Alert Moves all extremities person Respiration - General Respiration Rate SpO2 (%) (B/min) 15 99 Final Case Assessment Cardiovascular HR Rhythm NIBP Chest Pain 96 paced 140/91 0 Edema Present Skin color Skin None Normal Warm Dry Circulatory - Right Pulses Dorsalis Pedis Femoral Radial 2 2 2 Scale (0,1,2,3,4,d) Scale (0,1,2,3,4,d) Neurological State Oriented to time-place- Alert Moves all extremities person Respiration - General Respiration Rate SpO2 (%) (B/min) 15 99 Chronological Log Time Study Chronological Log 8:06:00 Patient arrived via Bed. 8:06:00 Patient Name, D.O.B, / Armband Verified By R.N. 8:06:00 Consent signed by the physician and the patient and verified by the [facility] staff. 8:13:11 Pre-op and post- op instructions given; patient acknowledges understanding of instructions. 8:13:12 Verbal Stimulation=2 Physical Stimulation=2 Airway=2 Respiration=2 TOTAL=8. (0=absent, 1=pérez ited, 2=present) 8:13:13 Presedation assessment performed by [facility] RN. 8:13:13 Allens test performed on the right radial and ulnar artery. 8:13:14 Immediate Presedation assesment performed by physician. 8:13:17 Patient has been NPO for More than 6Hrs. 8:13:17 Skin Breakdown- none per patient 8:13:19 Patient Warmer Placed on the Table. 8:13:20 Meet Prominences Protected 8:13:20 A # 20 IV was noted in the Antecubital (left). Grade = 0 Patient arrived on IV Solutions given by cathlab, cathlab in Left Antecubital via Peripheral IV. Pump/Drip Flow = 20 8:13:21 ml/hr using NaCl .9. 8:13:21 History and physical on the chart or being dictated. 8:17:32 Reference ECG taken Vitals capture started with the following parameters, Patient=Adult, Interval=5 min, Initial Pre uuxcp=293 mmHg, 8:18:52 Deflation Rate=5 mmHg, Cuff placed on Left Arm 8:19:55 IV=447 bpm, ROOK=476/88 mmhg, SpO2=96.0 %, Resp=12 B/min, Pain=0, Vinay=10, Turner=2 Assessment: Initial Case, PI=778 BPM, Rhythm=paced, TDVB=076/88 mmhg, Chest Pain=0, Edema=None, Color=Normal, Skin = Warm, Dry 8:21:47 Right Pulses: Shlomo Ped=2, Femoral=2, Radial=2 Neurological: State=Alert, Ox3, SIU Respiration: Resp=15 B/min, SpO2=99 % 8:22:41 Right Radial and groin(s) prepped with 2% chlorhexidine, and draped after a 3 min. waiting t will. 8:24:24 MD paged 8:24:35 RO=044 bpm, LYVA=417/61 mmhg, SpO2=97.0 %, Resp=16 B/min, Pain=0, Vinay=10, Turner=2 8:25:35 MD responded 8:27:30 Pressure channel 1 zeroed. 8:27:35 Contrast Scanned 8:29:34 HR=95 bpm, JSYZ=273/75 mmhg, SpO2=97.0 %, Resp=16 B/min, Pain=0, Vinay=10, Turner=2 8:34:29 HR=92 bpm, QLTV=645/91 mmhg, SpO2=97.0 %, Resp=15 B/min, Pain=0, Vinay=10, Turner=2 8:34:36 MD arrived. 8:35:14 Immediate Presedation assesment performed by physician. 8:35:55 50 mcg FENTANYL given in lab by Rafa Tipton RN in Left Antecubital via Peripheral IV. Order ed by Daren Nguyễn. 8:36:46 1 mg VERSED given in lab by Rafa Tipton RN in Left Antecubital via Peripheral IV. Ordered b Daren Bustillo. 8:37:01 Verbal Stimulation=2 Physical Stimulation=2 Airway=2 Respiration=2 TOTAL=8. (0=absent, 1=pérez ited, 2=present) Time Out. Correct patient, correct procedure, correct physician, power injector not loaded with contrast with surgical 8:38:13 team present. Time Out Concurred by MD and individual staff in procedure. 8:38:19 Case Start 8:39:28 2 mL 1% XYLOCAINE given in lab by Daren Nguyễn in Right Radial via Subcutaneous. 8:39:34 CN=173 bpm, QGFN=173/71 mmhg, SpO2=93.0 %, Resp=15 B/min, Pain=0, Vinay=10, Turner=2 8:40:30 Access site was Right Radial Artery. A SHEATH, FR6 RADIAL PRELUDE EASE 11CM FR 6 was advanced into the Radial (right) using the Perc utaneous 8:40:36 technique. 8:40:40 In the Radial (right) the SHEATH, FR6 RADIAL PRELUDE EASE 11CM FR [address] by Daren Nguyễn. 8:40:44 100 mcg NTG (IC) given in lab by Daren Nguyễn in Right Radial via Intra-arterial. 8:42:03 5000 units HEPARIN given in lab by Rafa Tipton RN in Left Antecubital via Peripheral IV. O rdered by Daren Nguyễn. A JR 5.0 INFINITI CATHETER FR 5 was advanced over a wire. OMNIPAQUE, 350 MG, 150ML 150ML was us ed for 8:42:30 injections. Recorded Pressure: LV, RC=952, Condition=Condition 1 8:43:08 (Left Ventricle) LV 125/10/10 Recorded Pressure: LV, Ao, OA=973, Condition=Condition 1 8:43:16 (Left Ventricle) LV 117/10/12, (Aorta) Ao 111/78/93 8:44:28 The RCA was injected and visualized at various angles. OMNIPAQUE, 350 MG, 150ML 150ML used . 8:44:31 QT=846 bpm, ZSEN=333/91 mmhg, SpO2=95.0 %, Resp=19 B/min, Pain=0, Vinay=10, Turner=2 After removing the current catheter a JL 3.5 INFINITI CATHETER FR 5 was advanced over a WIRE, E XCHANGE 260CM 8:45:13 3MMJ 260CM. 8:46:15 The LCA was injected and visualized at various angles. OMNIPAQUE, 350 MG, 150ML 150ML used . 8:48:24 Catheter was removed 8:48:27 Case End Assessment: Final Case, HR=96 BPM, Rhythm=paced, AYKC=932/91 mmhg, Chest Pain=0, Edema=None, Color=Normal, Skin = Warm, Dry 8:48:34 Right Pulses: Shlomo Ped=2, Femoral=2, Radial=2 Neurological: State=Alert, Ox3, SIU Respiration: Resp=15 B/min, SpO2=99 % 8:48:49 Catheter(s) removed without difficulty Radial Compression Device Used. 10 mLs of air placed in BAND, RADIAL COMPRESSION TR LARGE 29 29 CM. Affected 8:48:50 hand 95 % O2 saturation. 8:48:58 Sterile dressing applied to site 8:48:59 No case complications noted. 8:48:59 Cine recording checked. 8:49:01 Bedside Report will be given. 8:49:02 Contrast Scanned 8:49:05 A Left Heart Cath was performed. 8:49:30 CG=479 bpm, TJST=399/96 mmhg, SpO2=96.0 %, Resp=18 B/min, Pain=0, Vinay=10, Turner=2 8:54:31 Vitals capture stopped. 8:54:32 YQTC=188/70 mmhg, Pain=0, Vinay=10, Turner=2 8:54:33 Patient moved to [facility] End Study - Contrast Media Used In Study Contrast Total Opened (mL) Total Used (mL) Total Wasted (mL) Omnipaque 50 50 0 End Study - Maximum Contrast Load Max Contrast Load (mL) 1029.9 End Study - Radiation Exposure Fluoro Time (minutes) 1.8 End Study - Patient Disposition Complications Transferred To Interventional Outcome No [facility] Holding No attempt made
--- NOTE | 2017-11-12 08:57 | PD.CARD.PN ---
Subjective Subjective Remarks [facility] today Objective Medications Current Medications Medications (Trade) Dose Ordered Sig/Isabel Route Start Time Stop Time Status Last Admin (Cardizem Inj) 25 mg UNSCH X1 PRN IV PUSH 11/06/17 22:30 11/06/17 22:20 (Glucophage) 500 mg DAILY PO 11/07/17 09:00 11/11/17 11:08 (Paxil) 40 mg DAILY PO 11/07/17 09:00 11/11/17 11:08 (Protonix) 20 mg DAILY PO 11/07/17 09:00 11/11/17 11:07 (Pravachol) 10 mg HS PO 11/07/17 21:00 11/11/17 20:26 (D50w (Vial) Inj) 50 ml UNSCH PRN IV PUSH 11/07/17 01:45 (Glucagon Inj) 1 mg UNSCH PRN OTHER 11/07/17 01:45 (NovoLOG SUPPLEMENTAL SCALE) 1 ACHS SLIDING SCALE SQ 11/07/17 08:00 11/08/17 20:48 (NS Flush) 2 ml UNSCH PRN IV FLUSH 11/07/17 02:00 (NS Flush) 2 ml BID IV FLUSH 11/07/17 09:00 11/11/17 19:24 (Tylenol) 650 mg Q4H PRN PO 11/07/17 02:00 (Zofran Inj) 4 mg Q6H PRN IVP 11/07/17 02:00 (Narcan Inj) 0.4 mg UNSCH PRN IV PUSH 11/07/17 02:00 (Rosalie-Colace) 1 tab BID PO 11/07/17 09:00 11/11/17 20:26 (Milk Of Magnesia Liq) 30 ml Q12H PRN PO 11/07/17 02:00 (Senokot) 17.2 mg Q12H PRN PO 11/07/17 02:00 (Dulcolax Supp) 10 mg DAILY PRN RECTAL 11/07/17 02:00 (Lactulose Liq) 30 ml DAILY PRN PO 11/07/17 02:00 Miscellaneous Information Patient in critical care unit? Ass... Q361D .XX 11/07/17 03:45 11/07/17 03:45 (Aspirin Chew) 81 mg DAILY PO 11/08/17 09:00 11/11/17 11:08 Diltiazem HCl 125 mg/Sodium Chloride 125 ml @ 5 mls/hr TITRATE PRN IV 11/08/17 01:30 11/08/17 01:46 (Lanoxin) 0.25 mg DAILY PO 11/09/17 09:00 11/11/17 11:08 (Ativan Inj) 1 mg Q4H PRN IV PUSH 11/10/17 13:15 11/11/17 19:23 (Cardizem Cd) 360 mg DAILY PO 11/11/17 09:00 11/11/17 13:09 Miscellaneous Information 1 ONCE ONCE XX 11/12/17 09:00 11/12/17 09:01 UNV (Lopressor) 100 mg Q12HR PO 11/12/17 09:00 UNV Vital Signs / I&O Vital Signs Date Time Temp Pulse Resp B/P (MAP) Pulse Ox O2 Delivery O2 Flow Rate FiO2 11/12/17 08:00 98.2 65 20 122/66 (84) 94 11/12/17 04:51 97.8 65 20 111/82 (92) 95 11/12/17 00:52 97.9 76 20 119/84 (96) 95 11/11/17 23:48 72 11/11/17 21:36 94 11/11/17 20:46 97.7 76 16 119/62 (81) 93 11/11/17 20:00 Room Air 11/11/17 19:44 68 11/11/17 16:00 97.6 80 20 130/68 (88) 93 11/11/17 12:00 97.2 83 20 140/84 (102) 94 11/11/17 12:00 104 11/11/17 10:35 133/77 (95) I/O 11/11/17 11/11/17 11/11/17 11/12/17 11/12/17 11/12/17 07:00 15:00 23:00 07:00 15:00 23:00 Intake Total 300 ml 0 ml Output Total 500 ml Balance -200 ml 0 ml Intake Oral 300 ml 0 ml Output Urine Total 500 ml Stool Total 0 ml # Voids 4 2 # Bowel Movements 2 Physical Exam EYES: No scleral icterus. No injection or drainage. NECK: Supple, trachea midline. No JVD or lymphadenopathy. CARDIOVASCULAR: IR IR RESPIRATORY: Breath sounds equal bilaterally. No accessory muscle use. GASTROINTESTINAL: Abdomen soft, non-tender, nondistended. MUSCULOSKELETAL: No cyanosis, or edema. BACK: Nontender without obvious deformity. No CVA tenderness. Laboratory Laboratory Tests Test 11/11/17 10:30 11/12/17 04:55 Digoxin Level 0.5 NG/ML 0.7 NG/ML Imaging Last Impressions Myocardial Perfusion Scan Nuc Med 11/10/17 0000 Signed Impressions: Service Date/Time: Friday, November 10, 2017 10:00 - CONCLUSION: 1. Predominantly reversible moderate sized anterior and apical wall defect suggesting ischemia in the left anterior descending artery distribution. 2. Decreased calculated ejection fraction 37%% with mild dyskinesis in the septum. RISK CATEGORY: Intermediate (1-3%% Annual Mortality Rate) Obey Gray MD Chest X-Ray 11/08/17 0000 Signed Impressions: Service Date/Time: Wednesday, November 08, 2017 09:56 - CONCLUSION: Cardiomegaly with slight interstitial densities likely interstitial edema with bibasilar atelectasis. Stephen Pena MD Assessment and Plan Assessment and Plan afib RVR - CCB + BB. HR improved. titrate BB as BP tolerates. SBP 140 mmHg today cont dig cardiomyopathy - likely rate related. [facility] no obstructive CAD restart anticoagulation tonight OK for DC from cardio standpoint FU 2-3 weeks echo in 2 months no MUSA or ARB due to hypotension will sign off call with further questions Daren Nguyễn MD Nov 12, 2017 08:57
[2017-11-12] MEDS: DILTIAZEM-CD 180 MG CAP ER PO SCH (09:00)
[2017-11-12] MEDS: metFORMIN HCL 500 MG TAB PO SCH (09:00)
[2017-11-12] MEDS: PARoxetine HCL 20 MG TAB PO SCH (09:00)
[2017-11-12] MEDS: DIGOXIN 0.25 MG TAB PO SCH (09:00)
[2017-11-12] MEDS ORDERED: MISC INFORMATION XX ONE (09:00)
[2017-11-12] MEDS: METOPROLOL TARTRATE 100 MG TAB PO SCH ×2 (09:00→21:14)
[2017-11-12] MEDS: ASPIRIN 81 MG CHEW TAB PO SCH (09:00)
[2017-11-12] MEDS: PANTOPRAZOLE SOD 20 MG DELAYED RELEASE TAB PO SCH (09:00)
[2017-11-12] MEDS: SODIUM CHLORIDE 0.9% FLUSH 10 ML FLUSH IV FLUSH SCH ×2 (09:00→21:00)
--- NOTE | 2017-11-12 09:37 | MA ---
cc: MIKE WATERS DATE 11/12/2017 INDICATION Cardiomyopathy, abnormal stress test. PROCEDURE PERFORMED 1. Fluoroscopy with interpretation 2. Coronary angiography 3. Left heart catheterization METHOD The risks, benefits and alternatives discussed with the patient. The patient understood and consented to the procedure. PROCEDURE The patient brought into the catheterization lab, placed on the catheterization table. The right wrist was prepped and draped in a sterile fashion. The right wrist was anesthetized with 2% lidocaine. The right radial artery was cannulated and a 6-Georgian 7 cm sheath was placed without difficulty. LEFT HEART CATHETERIZATION Intraventricular hemodynamics shows 117/10 mmHg. Left ventricular end-diastolic pressure 12 mmHg. No aortic stenosis by transaortic valvular pullback gradient. CORONARY ANGIOGRAPHY 1. Left main coronary artery has minor luminal irregularities. 2. Left anterior descending coronary has minor luminal irregularities and gives rise to a diagonal branch of moderate size with minor luminal irregularities. 3. Left circumflex gives rise to a ramus intermedius branch with 30-40% stenosis. The obtuse marginal branch has minor luminal irregularities. 4. Right coronary is a dominant vessel giving rise to a posterior descending branch that has 20-30% stenosis in the mid segment. CONCLUSION 1. Nonischemic cardiomyopathy 2. Mild nonobstructive coronary disease 3. Normal left-sided filling pressures PLAN Monitor the patient closely for any post procedural complications, reinitiate anticoagulation. The patient's rate control is much improved. We will titrate the beta-cathy. The patient can be potentially discharged and followed up as an outpatient. We will repeat echocardiogram in two to three months to see if there is improvement in the ejection fraction with rate control strategy. MD MALAIKA Booth/FELICIA /8:53 AM /9:13 AM
[2017-11-12] MEDS ORDERED: IOHEXOL 350 MG/ML 50 ML BTL (for Cath Lab) OTHER ONE (09:53)
--- NOTE | 2017-11-12 10:59 | HHI.DS ---
Discharge Summary Admission Date Nov 07, 2017 at 00:53 Discharge Date: Nov 13, 2017 Admitting Diagnosis atrial fibrillation with rapid ventricular response, congestive hear (1) Atrial fibrillation with RVR Diagnosis: Principal ICD Codes: I48.91 - Unspecified atrial fibrillation Status: Acute (2) Congestive heart failure Diagnosis: Principal ICD Codes: I50.9 - Heart failure, unspecified Status: Acute (3) Elevated troponin I level Diagnosis: Principal ICD Codes: R74.8 - Abnormal levels of other serum enzymes Status: Acute Consultants Dr. Nguyễn, Cardiology Procedures Cardiac catheterization 11/12/[address] Nguyễn Brief History The patient is a 62-year-old male that at approximately 9 PM tonight felt irregular heartbeat consistent with his previous history of paroxysmal atrial fibrillation. He felt chest tightness, was diaphoretic and short of breath. He denies any syncopal or near syncopal spells. He states he is on atenolol and Cartia. Patient with long hx atrial fib ,he did feel like a cold was coming on otherwise no chest pain did have some SOB in er was in rapid atrial fib and given several iv dose cardiazem and drip also had mild CHF on xray which responded to Lasix which improved breathing. Will be admitted to [facility] with cardiac consult. CBC/BMP: 11/10/17 0900 11/08/17 1140 Significant Findings Laboratory Tests Test 11/10/17 09:00 11/11/17 10:30 11/12/17 04:55 Digoxin Level 0.5 NG/ML (0.8-2.0) 0.7 NG/ML (0.8-2.0) Imaging Last Impressions Myocardial Perfusion Scan Nuc Med 11/10/17 0000 Signed Impressions: Service Date/Time: Friday, November 10, 2017 10:00 - CONCLUSION: 1. Predominantly reversible moderate sized anterior and apical wall defect suggesting ischemia in the left anterior descending artery distribution. 2. Decreased calculated ejection fraction 37%% with mild dyskinesis in the septum. RISK CATEGORY: Intermediate (1-3%% Annual Mortality Rate) Obey Gray MD Chest X-Ray 11/08/17 0000 Signed Impressions: Service Date/Time: Wednesday, November 08, 2017 09:56 - CONCLUSION: Cardiomegaly with slight interstitial densities likely interstitial edema with bibasilar atelectasis. Stephen Pena MD PE at Discharge GENERAL: This is a well-nourished, well-developed patient, in no apparent distress. CARDIOVASCULAR: irregular RESPIRATORY: Clear to auscultation. Breath sounds equal bilaterally. No wheezes , rales, or rhonchi. GASTROINTESTINAL: Abdomen soft, non-tender, nondistended. Normal active bowel sounds MUSCULOSKELETAL: Extremities without clubbing, cyanosis, or edema. NEURO: Alert & Oriented x4 to person, place, time, situation. Moves all ext x4 Hospital Course Atrial fibrillation with RVR - comgmt with Cardiology - Echocardiogram --> Normal left ventricular size. The left ventricular systolic function is qgtavzmv-mq-siqipenr reduced with an estimated ejection fraction in the range of 35-40%. Mild mitral valve regurgitation. No aortic valve regurgitation. No aortic valve stenosis. There is mild tricuspid valve regurgitation. The estimated pulmonary arterial pressure is 40.5 mmHg. - cardizem drip off since (11/08) - PO cardizem increased to 90mg q6h - metoprolol 100mg daily - digoxin 0.25mg daily - Lexiscan (11/11/17) - Predominantly reversible moderate sized anterior and apical wall defect suggesting ischemia in the left anterior descending artery distribution. 2. Decreased calculated ejection fraction 37%% with mild dyskinesis in the septum - Case d/w Dr. Nguyễn (11/11/17). Will proceed with [facility]. - Cardiac catheterization 11/12/[address] Nguyễn. Reveals non-ischemic cardiomyopathy. Mild nonobstructive coronary disease. normal left sided filling pressure. 1. Left main coronary artery has minor luminal irregularities. 2. Left anterior descending coronary has minor luminal irregularities and gives rise to a diagonal branch of moderate size with minor luminal irregularities. 3. Left circumflex gives rise to a ramus intermedius branch with 30-40% stenosis. The obtuse marginal branch has minor luminal irregularities. 4. Right coronary is a dominant vessel giving rise to a posterior descending branch that has 20-30% stenosis in the mid segment. - Cardiology recommends: Monitor the patient closely for any post procedural complications, reinitiate anticoagulation. The patient can be potentially discharged and followed up as an outpatient. We will repeat echocardiogram in two to three months to see if there is improvement in the ejection fraction with rate control strategy. Congestive heart failure - CHF d/t acute A.Fib with RVR - Pt BNP improved with IV lasix & pt clinically improved - CXR (11/08) --> mild CHF - echocardiogram --> Normal left ventricular size. The left ventricular systolic function is jzikkblt-ou-sizhgmhu reduced with an estimated ejection fraction in the range of 35-40%. Mild mitral valve regurgitation. No aortic valve regurgitation. No aortic valve stenosis. There is mild tricuspid valve regurgitation. The estimated pulmonary arterial pressure is 40.5 mmHg. - Per cardiology cardiomyopathy may be rate related. Patient will need follow up echocardiogram as outpatient Elevated troponin I level - see above Pt Condition on Discharge: Stable Discharge Disposition: Discharge Home Discharge Instructions DIET: Follow Instructions for: Heart Healthy Diet Activities to Avoid: Driving for 24 hrs, Lifting/Bending, Strenuous Activity Follow up Referrals: Cardiology - [address] Nguyễn PCP Follow-up - [address] Le New Medications: Diltiazem CD 24 HR (Cardizem CD 24 HR) 360 Mg Caper 360 MG PO DAILY for a fib/ heart rate, #30 CAP 0 Refills Apixaban (Eliquis) 5 Mg Tab 5 MG PO BID for Blood Clot Prevention, #60 TAB 0 Refills Digoxin (Digoxin) 0.25 Mg Tab 0.25 MG PO DAILY for heart rate, #30 TAB 0 Refills Metoprolol Tartrate (Lopressor) 50 Mg Tab 50 MG PO Q12HR for blood pressure/heart rate, #60 TAB 0 Refills Continued Medications: Coenzyme Q10 (Ubidecarenone) (Coq10) 30 Mg Cap 30 MG PO DAILY Metformin (Metformin) 500 Mg Tab 500 MG PO DAILY for Blood Sugar Management, #30 TAB 0 Refills With a meal Omeprazole (Omeprazole) 20 Mg Tab 20 MG PO DAILY, #30 TAB 0 Refills Paroxetine (Paroxetine) 40 Mg Tab 40 MG PO DAILY, #30 TAB 0 Refills Simvastatin (Simvastatin) 10 Mg Tab 10 MG PO HS for Cholesterol Management, #30 TAB 0 Refills Discontinued Medications: Aspirin (Aspirin) 325 Mg Tab 325 MG PO DAILY, #30 TAB 0 Refills Atenolol (Atenolol) 100 Mg Tab 100 MG PO DAILY for Blood Pressure Management, #30 TAB 0 Refills Diltiazem (Diltiazem) 120 Mg Tab 120 MG PO QID for Angina, #120 TAB 0 Refills Lisinopril (Lisinopril) 10 Mg Tab 10 MG PO DAILY, #30 TAB 0 Refills Additional Information Patient examined. Assessment and plan formulated with Yuridia Modi PA-C. I agree with the above. f/u with PCP in 1 week f/u with Cardiology in 2 weeks Yuridia Modi Nov 12, 2017 10:59 Ethan Mckeon DO Nov 17, 2017 11:04
[2017-11-12] MEDS ORDERED: LISI2.5T3 PO (14:14)
--- NOTE | 2017-11-12 14:20 | PQ ---
Physician Query Response Document PATIENT: LEAH LANCE : 1955 ADMIT DATE: 11/07/2017 12:53 AM DISCH DATE: RESPONDING PROVIDER #: Eschwart QUERY TEXT: CHF Acuity and Type Congestive Heart Failure is documented in the Medical Record. Please document the type and acuity (in cludes probable or suspected) Such as: Type: -- Systolic -- Diastolic -- Combined -- Other, please specify Acuity: -- Acute -- Chronic -- Acute on chronic -- Other, please specify Also please document the underlying cause of the CHF (includes probable or suspected) The patient's Clinical Indicators include: Per 11/11 Progress note: Congestive heart failure - CXR (11/08) --> mild CHF - echocardiogram --> Normal left ventricular size. The left ventricular systolic function is thjtzbsw-hn-bvurmrcb reduced with an estimated ejection fra ction in the range of 35-40%. Query created by: Deloris Reaves on 11/11/2017 3:23 PM RESPONSE TEXT: Pt was treated for possible acute on chronic systolic CHF. Pt's echocardiogram (11/08) shoed EF 35-40% Pt admitted with Afib RVR. Pt should have a f/u echocardiogram outpt in 4-6 weeks to see if ejection fraction recovers. Electronically signed by: Ethan Mckeon DO 11/12/2017 2:16 PM
--- NOTE | 2017-11-12 14:55 | HHI.PR ---
Subjective Remarks Patient he is very anxious regarding possible DC home Patient offers no other complaints at this time Objective Vitals Vital Signs Date Time Temp Pulse Resp B/P (MAP) Pulse Ox O2 Delivery O2 Flow Rate FiO2 11/12/17 12:00 97.3 77 20 140/70 (93) 94 11/12/17 09:02 92 Room Air 11/12/17 08:00 98.2 65 20 122/66 (84) 94 11/12/17 04:51 97.8 65 20 111/82 (92) 95 11/12/17 00:52 97.9 76 20 119/84 (96) 95 11/11/17 23:48 72 11/11/17 21:36 94 11/11/17 20:46 97.7 76 16 119/62 (81) 93 11/11/17 20:00 Room Air 11/11/17 19:44 68 11/11/17 16:00 97.6 80 20 130/68 (88) 93 Result Diagram: 11/10/17 0900 11/08/17 1140 Other Results Laboratory Tests Test 11/10/17 09:00 11/11/17 10:30 11/12/17 04:55 White Blood Count 7.1 TH/MM3 Red Blood Count 4.99 MIL/MM3 Hemoglobin 15.6 GM/DL Hematocrit 44.6 % Mean Corpuscular Volume 89.2 FL Mean Corpuscular Hemoglobin 31.2 PG Mean Corpuscular Hemoglobin Concent 34.9 % Red Cell Distribution Width 13.5 % Platelet Count 210 TH/MM3 Mean Platelet Volume 9.0 FL Digoxin Level 0.5 NG/ML 0.7 NG/ML Imaging Last Impressions Myocardial Perfusion Scan Nuc Med 11/10/17 0000 Signed Impressions: Service Date/Time: Friday, November 10, 2017 10:00 - CONCLUSION: 1. Predominantly reversible moderate sized anterior and apical wall defect suggesting ischemia in the left anterior descending artery distribution. 2. Decreased calculated ejection fraction 37%% with mild dyskinesis in the septum. RISK CATEGORY: Intermediate (1-3%% Annual Mortality Rate) Obey Gray MD Chest X-Ray 11/08/17 0000 Signed Impressions: Service Date/Time: Wednesday, November 08, 2017 09:56 - CONCLUSION: Cardiomegaly with slight interstitial densities likely interstitial edema with bibasilar atelectasis. Stephen Pena MD Objective Remarks GENERAL: This is a well-nourished, well-developed patient, in no apparent distress. CARDIOVASCULAR: irregular RESPIRATORY: Clear to auscultation. Breath sounds equal bilaterally. No wheezes , rales, or rhonchi. GASTROINTESTINAL: Abdomen soft, non-tender, nondistended. Normal active bowel sounds MUSCULOSKELETAL: Extremities without clubbing, cyanosis, or edema. NEURO: Alert & Oriented x4 to person, place, time, situation. Moves all ext x4 Procedures Cardiac catheterization 11/12/[address] Nguyễn A/P Problem List: (1) Atrial fibrillation with RVR ICD Codes: I48.91 - Unspecified atrial fibrillation Status: Acute Plan: - comgmt with Cardiology - Echocardiogram --> Normal left ventricular size. The left ventricular systolic function is eiiiaozt-ce-cffhnumk reduced with an estimated ejection fraction in the range of 35-40%. Mild mitral valve regurgitation. No aortic valve regurgitation. No aortic valve stenosis. There is mild tricuspid valve regurgitation. The estimated pulmonary arterial pressure is 40.5 mmHg. - cardizem drip off since (11/08) - PO cardizem increased to 90mg q6h - metoprolol 100mg daily - digoxin 0.25mg daily - Lexiscan (11/11/17) - Predominantly reversible moderate sized anterior and apical wall defect suggesting ischemia in the left anterior descending artery distribution. 2. Decreased calculated ejection fraction 37%% with mild dyskinesis in the septum - Case d/w Dr. Nguyễn (11/11/17). Will proceed with [facility]. - Cardiac catheterization 11/12/[address] Nguyễn. Reveals non-ischemic cardiomyopathy. Mild nonobstructive coronary disease. normal left sided filling pressure. 1. Left main coronary artery has minor luminal irregularities. 2. Left anterior descending coronary has minor luminal irregularities and gives rise to a diagonal branch of moderate size with minor luminal irregularities. 3. Left circumflex gives rise to a ramus intermedius branch with 30-40% stenosis. The obtuse marginal branch has minor luminal irregularities. 4. Right coronary is a dominant vessel giving rise to a posterior descending branch that has 20-30% stenosis in the mid segment. - Cardiology recommends: Monitor the patient closely for any post procedural complications, reinitiate anticoagulation. The patient can be potentially discharged and followed up as an outpatient. We will repeat echocardiogram in two to three months to see if there is improvement in the ejection fraction with rate control strategy. - Patient very anxious regarding possible DC home reports his is not hoe today and will be home tomorrow - PT has not yet been evaluated by PT - Plan to monitor patient overnight encourage ambulation and continue to monitor HR on tele through the night. - Plan to DC in AM (2) Congestive heart failure ICD Codes: I50.9 - Heart failure, unspecified Status: Acute Plan: - CHF d/t acute A.Fib with RVR - Pt BNP improved with IV lasix & pt clinically improved - CXR (11/08) --> mild CHF - echocardiogram --> Normal left ventricular size. The left ventricular systolic function is nczmaska-de-gpwcivzv reduced with an estimated ejection fraction in the range of 35-40%. Mild mitral valve regurgitation. No aortic valve regurgitation. No aortic valve stenosis. There is mild tricuspid valve regurgitation. The estimated pulmonary arterial pressure is 40.5 mmHg. - Per cardiology cardiomyopathy may be rate related. Patient will need follow up echocardiogram as outpatient (3) Elevated troponin I level ICD Codes: R74.8 - Abnormal levels of other serum enzymes Status: Acute Plan: - see above Assessment and Plan Patient examined. Assessment and plan formulated with Yuridia Modi PA-C. I agree with the above. Problem Qualifiers (1) Congestive heart failure: Qualified Codes: I50.9 - Heart failure, unspecified Yuridia Modi Nov 12, 2017 14:55 Ethan Mckeon DO Nov 17, 2017 11:02
[2017-11-12] MEDS: PRAVASTATIN SOD 10 MG TAB PO SCH (21:14)
[2017-11-12] MEDS: DOCUSATE SODIUM 50 MG/SENNA 8.6 MG TAB PO SCH (21:14)
[2017-11-12] MEDS: LORazepam 2 MG/ML VIAL IV PUSH PRN (21:16)
[2017-11-13] VITALS: BP 117/60; PULSE 56; RESP 17; TEMP 98.7; O2SAT 96
[2017-11-13 03:45] VITALS: PULSE 64
[2017-11-13 04:00] VITALS: BP 127/59; PULSE 62; RESP 17; TEMP 97.4; O2SAT 96
[2017-11-13 08:00] VITALS: BP 108/60; PULSE 68; RESP 20; TEMP 98; O2SAT 95
[2017-11-13] MEDS: INSULIN ASPART SUPPLEMENTAL SCALE SQ SCH (08:00)
[2017-11-13] MEDS: DOCUSATE SODIUM 50 MG/SENNA 8.6 MG TAB PO SCH (09:00)
[2017-11-13] MEDS: SODIUM CHLORIDE 0.9% FLUSH 10 ML FLUSH IV FLUSH SCH (09:00)
[2017-11-13] MEDS: metFORMIN HCL 500 MG TAB PO SCH (09:02)
[2017-11-13] MEDS: ASPIRIN 81 MG CHEW TAB PO SCH (09:02)
[2017-11-13] MEDS: DILTIAZEM-CD 180 MG CAP ER PO SCH (09:02)
[2017-11-13] MEDS: METOPROLOL TARTRATE 100 MG TAB PO SCH (09:03)
[2017-11-13] MEDS: PARoxetine HCL 20 MG TAB PO SCH (09:03)
[2017-11-13] MEDS: DIGOXIN 0.25 MG TAB PO SCH (09:03)
[2017-11-13] MEDS: PANTOPRAZOLE SOD 20 MG DELAYED RELEASE TAB PO SCH (09:04)
[2017-11-13 09:38] LABS: AUTOMATED NEUTROPHIL # 3.8 TH/MM3 (1.8-7.7); BASOPHIL # 0.1 TH/MM3 (0-0.2); BASOPHIL % 0.9 % (0.0-2.0); EOSINOPHIL # 0.1 TH/MM3 (0-0.4); EOSINOPHIL % 2.1 % (0.0-4.0); HEMATOCRIT 42.4 % (39.0-51.0); HEMOGLOBIN 14.7 GM/DL (13.0-17.0); LYMPH % 30.2 % (9.0-44.0); MEAN CELL VOLUME 88.8 FL (80.0-100.0); MEAN CORPUSCULAR HEMOGLOBIN 30.9 PG (27.0-34.0); MEAN CORPUSCULAR HGB CONC 34.8 % (32.0-36.0); MEAN PLATELET VOLUME 9.3 FL (7.0-11.0); MONO % 9.5 % (0.0-8.0); MONOCYTE # 0.6 TH/MM3 (0-0.9); NEUT % 57.3 % (16.0-70.0); PLATELET COUNT 223 TH/MM3 (150-450); RED BLOOD COUNT 4.77 MIL/MM3 (4.50-5.90); RED CELL DISTRIBUTION WIDTH 13.5 % (11.6-17.2); WHITE BLOOD COUNT 6.6 TH/MM3 (4.0-11.0)
[2017-11-13 09:46] LABS: BICARBONATE 25.6 MEQ/L (21.0-32.0); CALCIUM 9.1 MG/DL (8.5-10.1); CREATININE 0.7 MG/DL (0.60-1.30)
== END 2017-11-13 09:53 | disposition home or self-care (01) | DRG 286 ==
LOC: PHED 21:59 → PHEDA 11-07 00:53 → HIMN 11-07 03:25 → N04B 11-10 23:36
PROVIDERS: ADMIT Hospitalist; ATTEND Hospitalist
PROC: B2111ZZ Fluoroscopy of Multiple Coronary Arteries using Low Osmolar Contrast (ICD-10-PCS; 2017-11-12)
PROC: 4A023N7 Measurement of Cardiac Sampling and Pressure, Left Heart, Percutaneous Approach (ICD-10-PCS; principal; 2017-11-12 09:45)
DX: I48.91 Unspecified atrial fibrillation (principal); I50.23 Acute on chronic systolic (congestive) heart failure; I42.9 Cardiomyopathy, unspecified; I95.9 Hypotension, unspecified; Z68.41 Body mass index [BMI] 40.0-44.9, adult; I11.0 Hypertensive heart disease with heart failure; E66.01 Morbid (severe) obesity due to excess calories; E78.5 Hyperlipidemia, unspecified; R74.8 Abnormal levels of other serum enzymes; D72.829 Elevated white blood cell count, unspecified; F17.210 Nicotine dependence, cigarettes, uncomplicated; G47.30 Sleep apnea, unspecified; K21.9 Gastro-esophageal reflux disease without esophagitis; F32.9 Major depressive disorder, single episode, unspecified; M19.90 Unspecified osteoarthritis, unspecified site; I08.1 Rheumatic disorders of both mitral and tricuspid valves; F41.9 Anxiety disorder, unspecified; E11.9 Type 2 diabetes mellitus without complications; Z79.82 Long term (current) use of aspirin; Z79.84 Long term (current) use of oral hypoglycemic drugs
CPT/HCPCS: 71045; 76937; 78452; 80048; 80053; 80061; 80162; 82948; 83735; 83880; 84484; 85025; 85027; 85610; 85730; 87641; 93005; 93017; 93306; 93458; 96365; 96366; 96375; A9502; C1769; C1893; J1160; J1644; J1650; J1815; J1940; J2060; J2250; J2785; J3010; Q9967